=== PATIENT | male | born 1950 | race Caucasian/White ===

== ENCOUNTER 2024-11-28 13:27 | Inpatient (IN) | payer MEDICARE, SELFPAY ==
--- NOTE | ~2024-11-28 | CT_ITS ---
EXAMINATION: CT abdomen pelvis w con DATE: 11/28/2024 17:17 INDICATION: Inguinal hernia TECHNIQUE: Computed tomography (CT) of the abdomen and pelvis was performed with 100 mL Omnipaque-350 intravenous contrast. Automated exposure control and iterative reconstruction technique were employe d. The dose-length product was 493.86 mGy-cm. COMPARISON: None FINDINGS: Mild discoid atelectasis/scarring at the lingula. Heart size is normal. No pericardial or pleural eff usion. Small sliding-type hiatal hernia. Mild focal hepatic steatosis ligamentum teres. Gallbladder, spleen, pancreas and bilateral adrenal glands are normal. Bilateral renal cysts with single subcentim eter cyst at the lower pole the left kidney and several larger cysts at the right kidney the largest a 6.7 cm parapelvic cyst. The cyst. Exert mass effect upon the right renal pelvis with persistent mil d right hydronephrosis at the upper pole which is unchanged since MRI dated 12/21/15. The cecum, chavez l appendix and terminal ileum extends into a large right inguinal hernia. 3.5 cm diameter orifice to the hernia. There is edematous wall thickening of the cecum along with edema at the herniated mesente clay fat. Contrast enhanced arteries are seen extending into the hernia. There is however compression of the draining vein which appears relatively opacified compared with the remainder of the mesenteric veins suggesting secondary venous congestion if not kathleen ischemia. There is also a small bowel alba sition point at the entrance to the hernia with pseudo feces within a short segment of mildly dilated small bowel which measures up to 3.6 cm maximal diameter and with decompression of the more distal t erminal ileum. No dilation of the majority the more proximal small bowel suggesting this is either lo w-grade or intermittent. There are few diverticula along the sigmoid colon without adjacent from trac e stranding to suggest diverticular colitis. Small left inguinal hernia containing very small segment of nonobstructed proximal sigmoid colon without evident associated marrow or mesenteric edema. Bladd er is normal. Prostatomegaly. No free intraperitoneal gas or fluid. No pathologically enlarged abdomi nal or pelvic lymphadenopathy. Mild lumbar and lower thoracic spondylosis. IMPRESSION: 1. Large right inguinal hernia containing the cecum, terminal ileum and normal appendix. Edematous wa ll thickening of the cecum and edema of the herniated mesenteric fat along with decreased enhancement of the draining mesenteric vein suggest secondary venous congestion due to compression of the draini ng vein. The feeding arteries along with the cecal mucosa remain enhancing argue against kathleen ischem ia. 2. Mild dilation the short segment of the immediately more proximal ileum suggesting low-grade, inter mittent or early obstruction. 3. Small left inguinal hernia containing short segment of sigmoid colon without evident obstruction o r edematous changes. 4. Large right parapelvic cyst which results in chronic mild hydronephrosis at the upper pole calyces of the right kidney. Reviewed, dictated and finalized at location A. IMPRESSION: 1. Large right inguinal hernia containing the cecum, terminal ileum and normal appendix. Edematous wall thickening of the cecum and edema of the herniated mes enteric fat along with decreased enhancement of the draining mesenteric vein darling ggest secondary venous congestion due to compression of the draining vein. The feeding arteries along with the cecal mucosa remain enhancing argue against fra nk ischemia. 2. Mild dilation the short segment of the immediately more proximal ileum sugge sting low-grade, intermittent or early obstruction. 3. Small left inguinal hernia containing short segment of sigmoid colon without evident obstruction or edematous changes. 4. Large right parapelvic cyst which results in chronic mild hydronephrosis at the upper pole calyces of the right kidney.
[2024-11-28 13:31] VITALS: BP 161/85; PULSE 86; RESP 18; TEMP 37.1; O2SAT 96
--- OUTSIDE RECORDS SUMMARY | 2024-11-28 13:37 | XMS_ITS | Clinical Summary ---
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
--- OUTSIDE RECORDS SUMMARY | 2024-11-28 13:38 | XMS_ITS | Clinical Summary ---
Author Organization [facility] Address [address] [place] [address] Care Team Providers Care Perinatal Technician Name Role Phone Michael Cespedes MD Primary Care Provider [phone] Source Comments [facility],non-owned Affiliates and Associated Physician Practices is amultiple site organization consisting of ambulatory clinics and hospital sitesin [place], [place], [place] and [place]. This disclosure is being madepursuant to the Care Everywhere program and may not contain all information available regarding this patient. Last updated 18.[facility] Immunizations Immunization Administration Dates Next Due INFLUENZA VACCINE, HIGH-DOSE , QUADR. (FLUZONE HIGH-DOSE QUADRIVALENT; 65Y+), 0.7 ML (HD-IIV4) 02/24/2016 Pneumococcal Pcv13 Conj 01/26/2016 TDAP (7yrs+) 01/26/2016 ZOSTER VACCINE, LIVE 01/26/2016 Social History Tobacco Use Types Packs/Day Years Used Date Smoking Tobacco: Never Assessed Sex and Gender Information Value Date Recorded Sex Assigned at Not on file Legal Sex Male 11:24 AM CDT Gender Identity Not on file Sexual Orientation Not on file Plan of Treatment Health Maintenance Due Date Last Done Comments COLOGUARD (AGES 45-75) - COL ON CA SCREENING 1951 COLON MONITORING 1951 COLONOSCOPY - COLON CA SCREENING 1951 CT COLONOGRAPHY - COLON CA SCREENING 1950 Colorectal Cancer Screening 1950 FIT - COLON CA SCREENING 1950 FLEX SIG - COLON CA SCREENING 1951 LIPID TESTING 1950 HEPATITIS C SCREENING 01/11/1969 ZOSTER VACCINE (2 of 3) 03/22/2016 01/26/2016 PNEUMOCOCCAL VACCINE 50+ (2 of 2 - PCV20 or PCV21) 01/25/2017 01/26/2016 COVID-19 VACCINE (1 - 2023-2 5 season) 2024 DEPRESSION SCREENING 05/08/2024 INFLUENZA VACCINE (#1) 2025 02/24/2016 Respiratory Syncytial Virus (RSV) Vaccine Pt: or over 60 yrs (1 - 1-dose 75+ series) 2026 DTAP/TDAP/TD VACCINES (2 - T d or Tdap) 01/25/2026 01/26/2016 HEPATITIS B VACCINE Aged Out No longe r eligible based on patient's age to complete this topic HIB VACCINE Aged Out No longer eligi ble based on patient's age to complete this topic HPV VACCINE Aged Out No longer eligi ble based on patient's age to complete this topic MENINGOCOCCAL (Group B) VACC INE SHARED DECISION-MAKING Aged Out No longer eligibl e based on patient's age to complete this topic MENINGOCOCCAL GROUPS A/C/Y/W VACCINE Aged Out No longer eligible b ased on patient's age to complete this topic Insurance MEDICARE [facility] MEDICARE Care Teams Perinatal Technician Relationship Specialty Start Date End Date Michael Cespedes MD [address] [facility] [address] [place] [id number] PCP - General Internal Medicine 01/26/16
--- NOTE | 2024-11-28 15:00 | PC.NURSE ---
Patient up pacing in waiting room-reporting increase in pain
--- NOTE | 2024-11-28 15:22 | ED.ABDPAIN ---
HPI - Abdominal Pain General Chief Complaint: Urogenital-Male Stated Complaint: Right side groin hernia pain/protrusion Time Seen by Provider: 11/28/24 15:23 Focused HPI: This is a 74 year old male that presents to the ER for hernia that he is unable to reduce. It is in his right groin. He has had it for years. Usually he is able to reduce it, but since this morning he has not been able to get it back pain. GENERAL: Well-appearing, well-nourished, and in no acute distress. HEAD: Normocephalic, atraumatic. CHEST: Clear to auscultation. ?No respiratory distress. HEART: Regular rate and rhythm.? NEURO: ?Alert and oriented x3. Patient screened in triage and initial orders placed.? ?Additional care and disposition to be based upon?diagnostic testing and treatment. Related Data Allergies Allergy/AdvReac Type Severity Reaction Status Date / Time No Known Allergies Allergy Unverified 11/28/24 13:28 [facility] Family History Family History (Updated 01/12/16 @ 09:10 by DOCTOR UNKNOWN) Sibling Patient's sister is in good health Family history of Alzheimer's disease Mother Family history of cardiovascular disease Father Family history of Alzheimer's disease Social History Social History Smoking status: Current every day smoker Alcohol intake: never Course Vital Signs Vital signs: Vital Signs Temperature 98.7 F 11/28/24 13:31 Pulse Rate 86 11/28/24 13:31 Respiratory Rate 18 11/28/24 13:31 Blood Pressure 161/85 H 11/28/24 13:31 Pulse Oximetry 96 11/28/24 13:31 Oxygen Delivery Room Air 11/28/24 13:31 Temperature 98.7 F 11/28/24 13:31 Pulse Rate 86 11/28/24 13:31 Respiratory Rate 18 11/28/24 13:31 Blood Pressure 161/85 H 11/28/24 13:31 Pulse Oximetry 96 11/28/24 13:31 Oxygen Delivery Room Air 11/28/24 13:31 Discharge Plan Discharge Patient Language: Faroese Follow-up/Referrals: PHYSICIAN,CRYSTAL SLICER [Primary Care Provider] -
--- NOTE | 2024-11-28 15:57 | ED_ITS ---
HPI - Male Genitourinary General Chief complaint: Urogenital-Male Stated complaint: Right side groin hernia pain/protrusion Time Seen by Provider: 11/28/24 15:23 History of Present Illness HPI Narrative: Pt has history of left inguinal hernia which he says intermittently pops out but he can usually push it back in but today it went into scrotum and unable to reduce. Pt complains of pain and tenderness in the area but does not want pain meds now. Related Data Allergies Allergy/AdvReac Type Severity Reaction Status Date / Time No Known Allergies Allergy Verified 11/28/24 15:50 Review of Systems 2 Review of Systems: All systems reviewed & are unremarkable except as noted in HPI and below PMFSH Family History Family History (Updated 01/12/16 @ 09:10 by DOCTOR UNKNOWN) Sibling Patient's sister is in good health Family history of Alzheimer's disease Mother Family history of cardiovascular disease Father Family history of Alzheimer's disease Social History Social History Smoking status: Current every day smoker Alcohol intake: never Exam 2 Const: General: healthy appearing and no acute distress Nutritional Appearance: well nourished Limitations: no limitations Resp: Effort & Inspection: normal respiratory effort Auscultation: clear to auscultation bilaterally Cardio: Rate: regular rate Rhythm: regular rhythm GI: GI Palp: Yes Soft to palpation Other: large right sided inguinal hernia extending down into scrotum inguina area firm and tender. smaller area of fullnes left inguinal region not into scrotum : Scrotum: scrotal swelling on the left Back/Spine/Pelvis: Back: no CVA tenderness Skin: General skin exam: normal color Rashes: no rashes Wounds: no wounds Neuro: General: patient oriented x3, moves all extremities, no meningeal signs and no focal motor deficits Speech: normal speech Extrem: General: normal to inspection and no clubbing, cyanosis or edema Psych: Mental Status: mental status grossly normal Affect: normal affect Attitude: cooperative Course Vital Signs Vital signs: Vital Signs Temperature 98.7 F 11/28/24 13:31 Pulse Rate 86 11/28/24 13:31 Respiratory Rate 18 11/28/24 13:31 Blood Pressure 161/85 H 11/28/24 13:31 Pulse Oximetry 96 11/28/24 13:31 Oxygen Delivery Room Air 11/28/24 13:31 Temperature 98.7 F 11/28/24 13:31 Pulse Rate 86 11/28/24 13:31 Respiratory Rate 18 11/28/24 13:31 Blood Pressure 161/85 H 11/28/24 13:31 Pulse Oximetry 96 11/28/24 13:31 Oxygen Delivery Room Air 11/28/24 13:31 MDM - Male Genitourinary MDM Narrative Medical decision making narrative: Pt presents with large right sided inguinal hernia into scrotum. Pt says he can usually reduce but doesn't know if it usually goes into scrotum. not something im comfortable trying to reduce. Will get labs and CT to make sherrell not strangulated. and discuss with surgery. pt has cecum terminal ileum and appendix in large right inguinal hernia with venous congestion but not obvious ischemia. also patial or early bowel obstruction. 10.[address] Steiner and says to admit and he will see in morning. discussed with Estefania Jacobson and agrees to admit. Lab Data 11/28/24 15:53 11/28/24 15:53 Labs: Lab Results 11/28/24 11/28/24 Range/Units 15:53 16:35 WBC 10.6 H (4.5-10.0) K/mm3 RBC 4.68 (4.6-6.20) M/mm3 Hgb 14.0 (14.0-18.0) g/dL Hct 41.5 L (42.0-52.0) % MCV 88.7 (80-100) fl MCH 29.9 (26-34) pg MCHC 33.7 (32-36) g/dl RDW 14.0 (11.5-14.5) % Plt Count 248 (150-375) k/mm3 MPV 9.3 (7.4-10.4) fl Immature Gran % (Auto) 0.6 H (0-0.5) % Neut % (Auto) 82.8 H (45.5-73.1) % Lymph % (Auto) 9.8 L (18.3-44.2) % [place] % (Auto) 6.2 (2.6-8.5) % Eos % (Auto) 0.1 (0-4.4) % Baso % (Auto) 0.5 (0.2-1.2) % Lymph # (Auto) 1.04 (0.9-3.2) K/mm3 [place] # (Auto) 0.7 H (0.1-0.6) K/mm3 Eos # (Auto) 0.0 (0-0.3) K/mm3 Baso # (Auto) 0.1 (0.0-0.1) K/mm3 Abs Immat Gran (auto) 0.06 H (0.00-0.031) K/mm3 Absolute Neuts (auto) 8.8 H (1.3-6.7) K/mm3 Absolute Nucleated RBC 0.000 (0.0-0.012) K/mm3 Nucleated RBC % 0.0 (0.0-0.2) % Sodium 134 L (137-145) mmol/L Potassium 4.4 (3.4-5.0) mmol/L Chloride 102 (98-107) mmol/L Carbon Dioxide 24 (22-30) mmol/L Anion Gap 8 (4-12) mmol/L BUN 22 H (9-20) mg/dL Creatinine 1.16 (0.7-1.3) mg/dL Estim Creat Clear Calc 55 ml/min Estimated GFR > 60 (59 - ) Glucose 108 (65-110) mg/dL Calcium 9.4 (8.4-10.2) mg/dL Total Bilirubin 0.7 (0.2-1.3) mg/dL AST 35 (17-59) U/L ALT 22 (6-50) U/L Alkaline Phosphatase 107 (38-126) U/L Total Protein 8.1 (6.3-8.2) g/dL Albumin 4.5 (3.5-5.1) g/dL Lipase 56 (23-300) U/L Urine Color Yellow (Yellow) Urine Appearance Clear (Clear) Urine pH 6.0 (5.0-9.0) Ur Specific [place] 1.020 (1.001-1.035) Urine Protein 3+ H (Negative) mg/dL Urine Glucose (UA) Negative (Negative) mg/dL Urine Ketones Trace H (Negative) mg/dL Ur Blood (Man) Negative (Negative) Urine Nitrate Negative (Negative) Urine Bilirubin Negative (Negative) Urine Urobilinogen 1.0 (<2.0) mg/dL Leukocyte Esterase Rfl Trace H (Negative) ERIC/UL Urine RBC 0-2 (0-2) /hpf Urine WBC 0-5 (0-3) /hpf Ur Squamous Epith Cells None seen (Few) /hpf Urine Bacteria None seen /hpf Urine Casts 3-5 Discharge Plan Discharge Clinical Impression: Inguinal hernia, Bowel obstruction Patient Disposition: Still a Patient Condition: Stable Patient Language: Bermudian Follow-up/Referrals: PHYSICIAN,SPECIAL INSPECTOR [Primary Care Provider] -
[2024-11-28 15:59] LABS: Hematocrit 41.5 % (42.0-52.0); Hemoglobin 14.0 g/dL (14.0-18.0); Immature Granulocyte Percent A 0.6 % (0-0.5); Lymphocytes Absolute Auto 1.04 K/mm3 (0.9-3.2); Mean Corpuscular HGB Conc 33.7 g/dl (32-36); Mean Corpuscular Hemoglobin 29.9 pg (26-34); Mean Corpuscular Volume 88.7 fl (80-100); Nucleated Red Blood Cells Absolute Auto 0.000 K/mm3 (0.0-0.012); Nucleated Red Blood Cells Perc 0.0 % (0.0-0.2); Platelet Count Result 248 k/mm3 (150-375); Red Blood Count 4.68 M/mm3 (4.6-6.20); White Blood Count 10.6 K/mm3 (4.5-10.0)
[2024-11-28 16:31] LABS: Alanine Aminotransferase 22 U/L (6-50); Albumin Level 4.5 g/dL (3.5-5.1); Alkaline Phosphatase 107 U/L (38-126); Anion Gap 8 mmol/L (4-12); Aspartate Amino Transferase 35 U/L (17-59); Bilirubin,Total 0.7 mg/dL (0.2-1.3); Blood Urea Nitrogen 22 mg/dL (9-20); Calcium 9.4 mg/dL (8.4-10.2); Carbon Dioxide 24 mmol/L (22-30); Chloride 102 mmol/L (98-107); Estimated CRCL calculation 55 ml/min; Estimated Glomerular Filt Rate > 60; Glucose 108 mg/dL (65-110); Lipase 56 U/L (23-300); Potassium 4.4 mmol/L (3.4-5.0); Sodium 134 mmol/L (137-145); Total Protein 8.1 g/dL (6.3-8.2)
--- OUTSIDE RECORDS SUMMARY | 2024-11-28 16:32 | XMS_ITS | Clinical Summary ---
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
--- OUTSIDE RECORDS SUMMARY | 2024-11-28 16:32 | XMS_ITS | Clinical Summary ---
Author Organization [facility] Address [address] [place] [address] Care Team Providers Care Ranger Aide Name Role Phone Michael Cespedes MD Primary Care Provider Source Comments [facility],non-owned Affiliates and Associated Physician Practices is amultiple site organization consisting of ambulatory clinics and hospital sitesin [place], [place], [place] and [place]. This disclosure is being madepursuant to the Care Everywhere program and may not contain all information available regarding this patient. Last updated 18.[facility] Immunizations Immunization Administration Dates Next Due INFLUENZA [...] age to complete this topic Insurance MEDICARE [facility] MEDICARE Care Teams Ranger Aide Relationship Specialty Start Date End Date Michael Cespedes MD [address] [facility] [address] [place] [id number] PCP - General Internal Medicine 01/26/16
[2024-11-28 16:45] LABS: Glucose Urine UA Negative (Negative); Leukocyte Esterase Ur Trace LEU/UL (Negative); Nitrate Urine Negative (Negative); Specific Grav Ur 1.020 (1.001-1.035)
[2024-11-28 16:47] LABS: Add Urine Microscopic? YES; Appearance Urine Clear (Clear)
[2024-11-28] MEDS: MORPHINE SULFATE (*CRX) 4 MG/ML INJ 2 MG IV PUSH (16:53)
[2024-11-28] MEDS: ONDANSETRON INJ 4 MG/2 ML VIAL IV PUSH (16:53)
[2024-11-28 18:43] VITALS: BP 153/67; PULSE 67; RESP 20; O2SAT 96
[2024-11-28 19:34] VITALS: BMI 25.0
--- NOTE | 2024-11-28 20:46 | P.HP_ITS ---
H&P: HPI History of Present Illness Date/Time: 11/28/24 20:46 Chief Complaint: Painful inguinal hernia Narrative: 74-year-old male with chronic right-sided inguinal hernia who presents with non reducible hernia and pain . He usually can reduce it. Reports tobacco abuse but no other medical history. Lives at home with his . No nausea, vomiting, diarrhea, other abdominal pain. No fever. Presents to [facility] ER on 11/28/2024 for the above symptoms. He reports he had a bowel movement in last had food without issue in the morning. WBC 10.6, hemoglobin 14.0, platelets 248, sodium 134, BUN 22, serum creatinine 1.16. CT abdomen pelvis with contrast performed: 1. Large right inguinal hernia containing the cecum, terminal ileum and normal appendix. Edematous wall thickening of the cecum and edema of the herniated mesenteric fat along with decreased enhancement of the draining mesenteric vein suggest secondary venous congestion due to compression of the draining vein. The feeding arteries along with the cecal mucosa remain enhancing argue against kathleen ischemia. 2. Mild dilation the short segment of the immediately more proximal ileum suggesting low-grade, intermittent or early obstruction. 3. Small left inguinal hernia containing short segment of sigmoid colon without evident obstruction or edematous changes. 4. Large right parapelvic cyst which results in chronic mild hydronephrosis at the upper pole calyces of the right kidney. General surgery consulted from the ER. Patient given morphine 2 mg IV x1, Zofran 4 mg IV x1. Afterwards, patient reports greatly reduced pain after morphine. He rest comfortably in the bed. Review of Systems Review of Systems: All systems reviewed & are unremarkable except as noted in HPI and below (HPI) [facility] Family History Family History (Updated 01/12/16 @ 09:10 by DOCTOR UNKNOWN) Sibling Patient's sister is in good health Family history of Alzheimer's disease Mother Family history of cardiovascular disease Father Family history of Alzheimer's disease Social History Social History Smoking status: Current every day smoker Alcohol intake: never Meds Home Medications and Allergies Allergies Allergy/AdvReac Type Severity Reaction Status Date / Time No Known Allergies Allergy Verified 11/28/24 15:50 Vital Signs Vital Signs - 24 hr 11/28/24 13:31 11/28/24 18:43 Temperature 98.7 F Pulse Rate 86 67 Respiratory Rate 18 20 Blood Pressure 161/85 H 153/67 H Pulse Oximetry 96 96 Oxygen Delivery Room Air Exam Const: General: comfortable and no acute distress Other: A&O x3 HENMT: Mouth: Yes moist mucous membranes Eyes: Pupils: Equal, round and reactive pupils present Neck: Neck: supple Resp: Effort & Inspection: normal respiratory effort Auscultation: clear to auscultation bilaterally Cardio: Rate: regular rate Rhythm: regular rhythm Heart sounds: no gallops, no murmurs and no rubs GI: Inspection: non-distended GI Palp: Yes Soft to palpation and No Tenderness to palpation present (GI) Auscultation: normal bowel sounds : General: Yes bladder normal to palpation Other: Enlarged right inguinal area and scrotal sac. Mild tenderness to deep palpation. Neuro: Motor exam (neuro): 5/5 motor strength present throughout Extrem: General: no edema H&P: Results Labs Labs: Short CBC 11/28/24 Range/Units 15:53 WBC 10.6 H (4.5-10.0) K/mm3 Hgb 14.0 (14.0-18.0) g/dL Hct 41.5 L (42.0-52.0) % Plt Count 248 (150-375) k/mm3 BMP 11/28/24 15:53 Sodium 134 L Potassium 4.4 Chloride 102 Carbon Dioxide 24 BUN 22 H Creatinine 1.16 Glucose 108 Calcium 9.4 Liver Function 11/28/24 Range/Units 15:53 Total Bilirubin 0.7 (0.2-1.3) mg/dL AST 35 (17-59) U/L ALT 22 (6-50) U/L Alkaline Phosphatase 107 (38-126) U/L Albumin 4.5 (3.5-5.1) g/dL Urine 11/28/24 Range/Units 16:35 Urine Color Yellow (Yellow) Urine Appearance Clear (Clear) Urine pH 6.0 (5.0-9.0) Ur Specific [place] 1.020 (1.001-1.035) Urine Protein 3+ H (Negative) mg/dL Urine Glucose (UA) Negative (Negative) mg/dL Assessment and Plan Assessment and plan (1) Inguinal hernia: Code(s): K40.90 - Unilateral inguinal hernia, without obstruction or gangrene, not specified as recurrent Status: Acute Plan 74-year-old male with chronic right-sided inguinal hernia who presents with non reducible hernia and pain . He usually can reduce it. Reports tobacco abuse but no other medical history. Lives at home with his . No nausea, vomiting, diarrhea, other abdominal pain. No fever. Presents to [facility] ER on 11/28/2024 for the above symptoms. He reports he had a bowel movement in last had food without issue in the morning. WBC 10.6, hemoglobin 14.0, platelets 248, sodium 134, BUN 22, serum creatinine 1.16. CT abdomen pelvis with contrast performed: 1. Large right inguinal hernia containing the cecum, terminal ileum and normal appendix. Edematous wall thickening of the cecum and edema of the herniated mesenteric fat along with decreased enhancement of the draining mesenteric vein suggest secondary venous congestion due to compression of the draining vein. The feeding arteries along with the cecal mucosa remain enhancing argue against kathleen ischemia. 2. Mild dilation the short segment of the immediately more proximal ileum suggesting low-grade, intermittent or early obstruction. 3. Small left inguinal hernia containing short segment of sigmoid colon without evident obstruction or edematous changes. 4. Large right parapelvic cyst which results in chronic mild hydronephrosis at the upper pole calyces of the right kidney. General surgery consulted from the ER. Patient given morphine 2 mg IV x1, Zofran 4 mg IV x1. Afterwards, patient reports greatly reduced pain after morphine. He rest comfortably in the bed. ----- NPO. Normal saline at 100 cc/hour. Morphine p.r.n.. Patient declines nicotine patch/gum. Continue to monitor pain and abdominal/genitourinary exam. General surgery consulted. Patient would like to be full code. SCDs. Hospitalist [facility] Advance Care Plan I have confirmed that the patient's Advanced Care Plan is present, code status is documented, or surrogate decision maker is listed in patient medical record.: Yes Medication Reconciliation I have utilized all available resources to obtain, update and review the patients current medications (includes all prescriptions, OTC, herbals, cannabis, and nutritional supplements).: Yes
--- NOTE | 2024-11-28 20:49 | ADMGEN ---
This patient, Marlo Flanagan, was admitted to [facility] Surg Room 301-01. Patient/family oriented to hospital policies and general routines including ID bracelet, bed and alarms, visiting hours, pain management, procedures, bathroom and other care routines, personal items, smoking policy, room service/diet, and visiting hours. Information on how to activate the Rapid Response Team has been discussed. Patient/Family are encouraged to report perceived risks to care and to ask questions if they do not understand what they are told or what they should do.
[2024-11-28 21:54] VITALS: BP 175/77; PULSE 62; RESP 18; TEMP 36.2; O2SAT 93
[2024-11-28] MEDS: SODIUM CHLORIDE 0.9% IV 1,000 ML 100 ML IV CONT (22:00)
[2024-11-28] MEDS: MORPHINE SULFATE (*CRX) 2 MG/ML INJ IV PUSH (22:30)
[2024-11-29] VITALS (15 sets, daily range): BP systolic 156–183; BP diastolic 58–97; PULSE 58–73; RESP 11–20; TEMP 35.6–37.2; O2SAT 94–100
--- NOTE | 2024-11-29 00:11 | PC.NURSE ---
called Dr. Steiner and let him know Pt. had worsening testicular swelling and pain. PT. is now on bedrest and can have ice packs for the swelling.
[2024-11-29] MEDS: MORPHINE SULFATE (*CRX) 2 MG/ML INJ IV PUSH ×3 (03:12→10:57)
[2024-11-29 06:41] LABS: Hematocrit 41.7 % (42.0-52.0); Hemoglobin 13.8 g/dL (14.0-18.0); Immature Granulocyte Percent A 0.6 % (0-0.5); Lymphocytes Absolute Auto 1.02 K/mm3 (0.9-3.2); Mean Corpuscular HGB Conc 33.1 g/dl (32-36); Mean Corpuscular Hemoglobin 30.1 pg (26-34); Mean Corpuscular Volume 90.8 fl (80-100); Nucleated Red Blood Cells Absolute Auto 0.000 K/mm3 (0.0-0.012); Nucleated Red Blood Cells Perc 0.0 % (0.0-0.2); Platelet Count Result 217 k/mm3 (150-375); Red Blood Count 4.59 M/mm3 (4.6-6.20); White Blood Count 8.6 K/mm3 (4.5-10.0)
[2024-11-29 06:55] LABS: INR 1.0; Prothrombin Time 13.6 Seconds (11.1-14.7)
[2024-11-29 07:10] LABS: Alanine Aminotransferase 20 U/L (6-50); Albumin Level 4.0 g/dL (3.5-5.1); Alkaline Phosphatase 106 U/L (38-126); Anion Gap 8 mmol/L (4-12); Aspartate Amino Transferase 37 U/L (17-59); Bilirubin,Total 1.0 mg/dL (0.2-1.3); Blood Urea Nitrogen 21 mg/dL (9-20); Calcium 9.0 mg/dL (8.4-10.2); Carbon Dioxide 25 mmol/L (22-30); Chloride 101 mmol/L (98-107); Estimated CRCL calculation 59 ml/min; Estimated Glomerular Filt Rate > 60; Glucose 91 mg/dL (65-110); Magnesium 2.0 mg/dL (1.6-2.3); Potassium 4.1 mmol/L (3.4-5.0); Sodium 134 mmol/L (137-145); Total Protein 7.2 g/dL (6.3-8.2)
--- NOTE | 2024-11-29 08:04 | P.CONGS_ITS ---
Assessment and Plan Assessment and plan (1) Incarcerated right inguinal hernia: Code(s): K40.30 - Unilateral inguinal hernia, with obstruction, without gangrene, not specified as recurrent Status: Acute Assessment and Plan: * I reviewed the CT and discussed the findings with the patient. I was unable to reduce the hernia at the bedside and patient was uncomfortable with applying pressure in this region. He has evidence of an incarcerated right inguinal hernia containing bowel. I discussed surgery in detail with patient and potential findings at the time of surgery including ischemic or necrotic bowel which would necessitate a bowel resection. I have recommended laparoscopic incarcerated right inguinal hernia repair with mesh, da [place] assisted, possible open, possible bowel resection. I discussed the procedure, risks, benefits, and alternatives. Questions were answered. History of Present Illness Consult details Consult date: 11/29/24 Reason for consult: other (Incarcerated right inguinal hernia) Requesting physician: Lina Vail III, DO Narrative: this is a 74-year-old man who I am asked to see for incarcerated right inguinal hernia. The patient states that he has known he had a hernia in this location for about 30-40 years. It was initially small and caused no symptoms but over time it has become larger and occasionally was causing some pain. He has had times where it has been protruding and somewhat difficult to reduce but he was able to eventually reduce it. Yesterday morning he began experiencing a painful bulge that was unable to be reduced. He went into the emergency department after still continuing to have symptoms. In the emergency department last night a CT was performed which showed evidence of an incarcerated right inguinal hernia containing small bowel and cecum. There were some mild inflammatory stranding signs around the incarcerated contents but no signs of strangulation. He was then admitted for further treatment. He currently is still having pain in the area and it still will not reduce. He is not passing any flatus. He denies any nausea or vomiting. Review of Systems 2 Review of Systems: All systems reviewed & are unremarkable except as noted in HPI and below Eyes: Eyes: Denies change in vision ENT: Denies hearing loss, Denies neck pain and Denies sore throat Cardiovascular: Cardiovascular: Denies chest pain and Denies dyspnea Respiratory: Respiratory: Denies cough, Denies dyspnea and Denies wheezing Gastrointestinal: Gastrointestinal: Reports as per HPI Genitourinary: Genitourinary: Denies hematuria and Denies dysuria Musculoskeletal: Musculoskeletal: Denies arthralgias, Denies joint swelling and Denies neck pain Allergic/Immunologic: Allergic/Immunologic: Denies wheezing PMFSH Past Medical History Medical History (Updated 11/29/24 @ 12:00 by Seven Steiner DO) No pertinent past medical history Family History Family History Sibling Patient's sister is in good health Family history of Alzheimer's disease Mother Family history of cardiovascular disease Father Family history of Alzheimer's disease Social History Social History Smoking packs per day: 0.5 Smoking cigarettes per day: 10.0 Smoking status: Current every day smoker Tobacco type: cigarettes Alcohol intake: former Substance use: current Substance use type: does not use Do You Feel Safe in your Home?: Yes Lack of Transportation: No Lack of Food: Never True Current Housing: I Have Housing Concerned About Future Housing: No Difficulty Paying Gas/Electric Bills: No Difficulty Paying for Meds: No Currently Unemployed: No Education: Trade/Vocational Certificate Difficulty w/ Childcare or Family Care: No Spiritual care concerns: No Meds Home Medications and Allergies Home Medications ?Medication ?Instructions ?Recorded ?Confirmed ?Type docusate sodium 100 mg capsule 100 mg PO PRN 11/28/24 11/28/24 History Allergies Allergy/AdvReac Type Severity Reaction Status Date / Time No Known Allergies Allergy Verified 11/28/24 15:50 Vital Signs Vital Signs - 24 hr 11/28/24 13:31 11/28/24 18:43 11/28/24 21:54 Temperature 98.7 F 97.2 F L Pulse Rate 86 67 62 Respiratory Rate 18 20 18 Blood Pressure 161/85 H 153/67 H 175/77 H Pulse Oximetry 96 96 93 Oxygen Delivery Room Air 11/29/24 06:00 Temperature 97.9 F Pulse Rate 58 L Respiratory Rate 20 Blood Pressure 173/67 H Pulse Oximetry 94 Oxygen Delivery Exam 2 Const: General: alert; No acute distress Orientation/consciousness: patient oriented x3 Limitations: no limitations HENMT: Head: normocephalic and atraumatic Ears: hearing grossly normal bilaterally Face/Nose/Sinus: Normal external nose present and Normal nares present Mouth: Yes Normal oral and palatal mucosa present and Yes moist mucous membranes Eyes: General: appearance normal, both eyes and all related structures C onjunctivae: conjunctivae normal Sclera: sclerae normal Pupils: Equal, round and reactive pupils present EOM: EOMs intact bilaterally Neck: Neck: normal visual inspection, full ROM, no lymphadenopathy, supple and no JVD Lymphatic: no lymphadenopathy noted Chest: Chest palpation & inspection: normal inspection of the chest Resp: Effort & Inspection: normal respiratory effort and able to speak in complete sentences Auscultation: clear to auscultation bilaterally P ercussion: percussion normal Cardio: Jugular venous distension: no JVD Rate: regular rate Rhythm: r egular rhythm Heart sounds: S1 normal heart sound present and S2 normal heart sound present Peripheral pulses: Peripheral pulses 2+ throughout GI: Inspection: normal to inspection GI Palp: Yes Soft to palpation, No Tenderness to palpation present (GI) and No Guarding due to palpation present (GI) Auscultation: normal bowel sounds : General: Yes no CVA tenderness Scrotum: inguinal hernia on the right ( incarcerated her right inguinal hernia containing bowel, soft, tender to palpation) Back/Spine/Pelvis: Back: no CVA tenderness Skin: General skin exam: normal color and dry skin Neuro: General: patient oriented x3, gait normal, moves all extremities, no focal motor deficits and CN's II-XI intact bilaterally Cranial nerves: Yes Equal, round and reactive pupils present Speech: normal speech Extrem: General: normal to inspection and capillary refill normal Results Labs 11/29/24 05:38 11/29/24 05:38 Labs: Abnormal lab results 11/28/24 11/28/24 11/29/24 Range/Units 15:53 16:35 05:38 WBC 10.6 H (4.5-10.0) K/mm3 RBC 4.59 L (4.6-6.20) M/mm3 Hgb 13.8 L (14.0-18.0) g/dL Hct 41.5 L 41.7 L (42.0-52.0) % Immature Gran % (Auto) 0.6 H 0.6 H (0-0.5) % Neut % (Auto) 82.8 H 77.0 H (45.5-73.1) % Lymph % (Auto) 9.8 L 11.9 L (18.3-44.2) % [place] % (Auto) 8.9 H (2.6-8.5) % [place] # (Auto) 0.7 H 0.8 H (0.1-0.6) K/mm3 Abs Immat Gran (auto) 0.06 H 0.05 H (0.00-0.031) K/mm3 Absolute Neuts (auto) 8.8 H (1.3-6.7) K/mm3 Sodium 134 L 134 L (137-145) mmol/L BUN 22 H 21 H (9-20) mg/dL Urine Protein 3+ H (Negative) mg/dL Urine Ketones Trace H (Negative) mg/dL Leukocyte Esterase Rfl Trace H (Negative) ERIC/UL Diabetes panel 11/28/24 11/29/24 Range/Units 15:53 05:38 Sodium 134 L 134 L (137-145) mmol/L Potassium 4.4 4.1 (3.4-5.0) mmol/L Chloride 102 101 (98-107) mmol/L Carbon Dioxide 24 25 (22-30) mmol/L BUN 22 H 21 H (9-20) mg/dL Creatinine 1.16 1.09 (0.7-1.3) mg/dL Glucose 108 91 (65-110) mg/dL Calcium 9.4 9.0 (8.4-10.2) mg/dL AST 35 37 (17-59) U/L ALT 22 20 (6-50) U/L Alkaline Phosphatase 107 106 (38-126) U/L Total Protein 8.1 7.2 (6.3-8.2) g/dL Albumin 4.5 4.0 (3.5-5.1) g/dL Calcium panel 11/28/24 11/29/24 Range/Units 15:53 05:38 Calcium 9.4 9.0 (8.4-10.2) mg/dL Albumin 4.5 4.0 (3.5-5.1) g/dL Pituitary panel 11/28/24 11/29/24 Range/Units 15:53 05:38 Sodium 134 L 134 L (137-145) mmol/L Potassium 4.4 4.1 (3.4-5.0) mmol/L Chloride 102 101 (98-107) mmol/L Carbon Dioxide 24 25 (22-30) mmol/L BUN 22 H 21 H (9-20) mg/dL Creatinine 1.16 1.09 (0.7-1.3) mg/dL Glucose 108 91 (65-110) mg/dL Calcium 9.4 9.0 (8.4-10.2) mg/dL Adrenal panel 11/28/24 11/29/24 Range/Units 15:53 05:38 Sodium 134 L 134 L (137-145) mmol/L Potassium 4.4 4.1 (3.4-5.0) mmol/L Chloride 102 101 (98-107) mmol/L Carbon Dioxide 24 25 (22-30) mmol/L BUN 22 H 21 H (9-20) mg/dL Creatinine 1.16 1.09 (0.7-1.3) mg/dL Glucose 108 91 (65-110) mg/dL Calcium 9.4 9.0 (8.4-10.2) mg/dL Total Bilirubin 0.7 1.0 (0.2-1.3) mg/dL AST 35 37 (17-59) U/L ALT 22 20 (6-50) U/L Alkaline Phosphatase 107 106 (38-126) U/L Total Protein 8.1 7.2 (6.3-8.2) g/dL Albumin 4.5 4.0 (3.5-5.1) g/dL All other labs normal. Imaging Additional studies: ITS Impressions Abdomen/Pelvis CT 11/28/24 17:25 IMPRESSION: 1. Large right inguinal hernia containing the cecum, terminal ileum and normal appendix. Edematous wall thickening of the cecum and edema of the herniated mesenteric fat along with decreased enhancement of the draining mesenteric vein suggest secondary venous congestion due to compression of the draining vein. The feeding arteries along with the cecal mucosa remain enhancing argue against kathleen ischemia. 2. Mild dilation the short segment of the immediately more proximal ileum suggesting low-grade, intermittent or early obstruction. 3. Small left inguinal hernia containing short segment of sigmoid colon without evident obstruction or edematous changes. 4. Large right parapelvic cyst which results in chronic mild hydronephrosis at the upper pole calyces of the right kidney.
--- NOTE | 2024-11-29 12:02 | WPDHPUPDATE1 ---
History and Physical Update Update Date/Time: 11/29/24 12:02 History and Physical has been reviewed, including an updated exam of the patient. There are NO changes in the patient's condition. Risks, benefits, and alternatives have been discussed and questions answered. Patient agrees to proceed with procedure.
--- NOTE | 2024-11-29 13:48 | WPDANESEPPF ---
Anes - Initial Pre Proc Eval Procedure: Operation Date: 11/29/24 14:30 Proposed Procedures p Robotic Repair Incarcerated Right Inguinal Hernia, Possible Bowel Resection - Seven Steiner DO Date/Time: 11/29/24 13:48 Surgeon: Everardo Guzman MD Pre Op Diagnosis: inguinal hernia/bowel obstruction Patient Data Age: 74 Gender: M Height: 1.83 m Weight: 83.6 kg Last Vital Signs Temp 99 F 11/29/24 13:30 Pulse 65 11/29/24 13:30 Resp 16 11/29/24 13:30 BP 180/72 H 11/29/24 13:30 Pulse Ox 96 11/29/24 13:30 O2 Del Method Room Air 11/29/24 13:30 Allergies Allergy/AdvReac Type Severity Reaction Status Date / Time No Known Allergies Allergy Verified 11/29/24 13:50 Home Medications ?Medication ?Instructions ?Recorded ?Confirmed ?Type docusate sodium 100 mg capsule 100 mg PO PRN 11/28/24 11/28/24 History Laboratory Tests 11/28/24 11/28/24 11/29/24 15:53 16:35 05:38 WBC 10.6 H K/mm3 8.6 K/mm3 (4.5-10.0) (4.5-10.0) RBC 4.68 M/mm3 4.59 L M/mm3 (4.6-6.20) (4.6-6.20) Hgb 14.0 g/dL 13.8 L g/dL (14.0-18.0) (14.0-18.0) Hct 41.5 L % 41.7 L % (42.0-52.0) (42.0-52.0) MCV 88.7 fl 90.8 fl (80-100) (80-100) MCH 29.9 pg 30.1 pg (26-34) (26-34) MCHC 33.7 g/dl 33.1 g/dl (32-36) (32-36) RDW 14.0 % 13.8 % (11.5-14.5) (11.5-14.5) Plt Count 248 k/mm3 217 k/mm3 (150-375) (150-375) MPV 9.3 fl 10.0 fl (7.4-10.4) (7.4-10.4) Immature Gran % (Auto) 0.6 H % 0.6 H % (0-0.5) (0-0.5) Neut % (Auto) 82.8 H % 77.0 H % (45.5-73.1) (45.5-73.1) Lymph % (Auto) 9.8 L % 11.9 L % (18.3-44.2) (18.3-44.2) [place] % (Auto) 6.2 % 8.9 H % (2.6-8.5) (2.6-8.5) Eos % (Auto) 0.1 % 1.1 % (0-4.4) (0-4.4) Baso % (Auto) 0.5 % 0.5 % (0.2-1.2) (0.2-1.2) Lymph # (Auto) 1.04 K/mm3 1.02 K/mm3 (0.9-3.2) (0.9-3.2) [place] # (Auto) 0.7 H K/mm3 0.8 H K/mm3 (0.1-0.6) (0.1-0.6) Eos # (Auto) 0.0 K/mm3 0.1 K/mm3 (0-0.3) (0-0.3) Baso # (Auto) 0.1 K/mm3 0.0 K/mm3 (0.0-0.1) (0.0-0.1) Abs Immat Gran (auto) 0.06 H K/mm3 0.05 H K/mm3 (0.00-0.031) (0.00-0.031) Absolute Neuts (auto) 8.8 H K/mm3 6.6 K/mm3 (1.3-6.7) (1.3-6.7) Absolute Nucleated RBC 0.000 K/mm3 0.000 K/mm3 (0.0-0.012) (0.0-0.012) Nucleated RBC % 0.0 % 0.0 % (0.0-0.2) (0.0-0.2) PT 13.6 Seconds (11.1-14.7) INR 1.0 Sodium 134 L mmol/L 134 L mmol/L (137-145) (137-145) Potassium 4.4 mmol/L 4.1 mmol/L (3.4-5.0) (3.4-5.0) Chloride 102 mmol/L 101 mmol/L (98-107) (98-107) Carbon Dioxide 24 mmol/L 25 mmol/L (22-30) (22-30) Anion Gap 8 mmol/L 8 mmol/L (4-12) (4-12) BUN 22 H mg/dL 21 H mg/dL (9-20) (9-20) Creatinine 1.16 mg/dL 1.09 mg/dL (0.7-1.3) (0.7-1.3) Estim Creat Clear Calc 55 ml/min 59 ml/min Estimated GFR > 60 > 60 (59 - ) (59 - ) Glucose 108 mg/dL 91 mg/dL (65-110) (65-110) Calcium 9.4 mg/dL 9.0 mg/dL (8.4-10.2) (8.4-10.2) Magnesium 2.0 mg/dL (1.6-2.3) Total Bilirubin 0.7 mg/dL 1.0 mg/dL (0.2-1.3) (0.2-1.3) AST 35 U/L 37 U/L (17-59) (17-59) ALT 22 U/L 20 U/L (6-50) (6-50) Alkaline Phosphatase 107 U/L 106 U/L (38-126) (38-126) Total Protein 8.1 g/dL 7.2 g/dL (6.3-8.2) (6.3-8.2) Albumin 4.5 g/dL 4.0 g/dL (3.5-5.1) (3.5-5.1) Lipase 56 U/L (23-300) Urine Color Yellow (Yellow) Urine Appearance Clear (Clear) Urine pH 6.0 (5.0-9.0) Ur Specific [place] 1.020 (1.001-1.035) Urine Protein 3+ H mg/dL (Negative) Urine Glucose (UA) Negative mg/dL (Negative) Urine Ketones Trace H mg/dL (Negative) Ur Blood (Man) Negative (Negative) Urine Nitrate Negative (Negative) Urine Bilirubin Negative (Negative) Urine Urobilinogen 1.0 mg/dL (<2.0) Leukocyte Esterase Rfl Trace H ERIC/UL (Negative) Urine RBC 0-2 /hpf (0-2) Urine WBC 0-5 /hpf (0-3) Ur Squamous Epith Cells None seen /hpf (Few) Urine Bacteria None seen /hpf Urine Casts 3-5 Patient hx anesthesia problems: none Family hx anesthesia problems: none Results Review: All pre-operative results and documents have been reviewed as part of the pre-operative evaluation. [facility] Past Medical History Medical History (Updated 11/29/24 @ 12:00 by Seven Steiner DO) No pertinent past medical history Family History Family History Sibling Patient's sister is in good health Family history of Alzheimer's disease Mother Family history of cardiovascular disease Father Family history of Alzheimer's disease Social History Social History Smoking packs per day: 0.5 Smoking cigarettes per day: 10.0 Smoking status: Current every day smoker Tobacco type: cigarettes Alcohol intake: former Substance use: current Substance use type: does not use Do You Feel Safe in your Home?: Yes Lack of Transportation: No Lack of Food: Never True Current Housing: I Have Housing Concerned About Future Housing: No Difficulty Paying Gas/Electric Bills: No Difficulty Paying for Meds: No Currently Unemployed: No Education: Trade/Vocational Certificate Difficulty w/ Childcare or Family Care: No Spiritual care concerns: No Anes - Eval Final PreProcedure Day of Procedure 11/29/24 13:48 Patient weight: normal Heart: regular rate and rhythm Lungs: clear to auscultation Airway: Mallampati scale class III Neurological: alert and oriented Last oral intake: >/= 8 hours ASA classification: II Emergent: no Anesthetic plan: proceed Anesthesia type and monitoring: general ETT and standard monitoring Results Review: All pre-operative results and documents have been reviewed as part of the pre-operative evaluation. Informed Consent: The patient's anesthetic plan and its attendant risks and benefits were discussed with the patient/family/POA. Questions were solicited and answers provided to the satisfaction of the patient/family/POA.
[2024-11-29] MEDS: LACTATED RINGERS 1,000 ML 30 ML IV CONT ×2 (13:49→17:17)
--- NOTE | 2024-11-29 13:52 | ECG_ITS ---
Test Date: 2024-11-29 14:07:25 Measurements Intervals [place] Rate: 66 P: 66 ME: 184 QRS: 56 QRSD: 104 T: 74 QT: 402 QTc: 421 Interpretive Statements SINUS RHYTHM NONSPECIFIC T-WAVE ABNORMALITY No previous ECG available for comparison Electronically Signed On 11-30-2024 18:40:20 CDT by Jr Nance M.D.
[2024-11-29] MEDS: ceFAZolin 2 GM in SODIUM CHLORIDE 0.9% IV 50 ML 100 ML IVPB (14:13)
[2024-11-29] MEDS: BUPIVACAINE/EPINEPHRINE 0.5% 50 ML VIAL 30 ML INFILTRATE (14:19)
--- NOTE | 2024-11-29 14:30 | P.PNIM_ITS ---
Progress Note: A&P Assessment and Plan (1) Inguinal hernia: Code(s): K40.90 - Unilateral inguinal hernia, without obstruction or gangrene, not specified as recurrent Status: Acute Plan 74-year-old male with chronic right-sided inguinal hernia who presents with non reducible hernia and pain . He usually can reduce it. Reports tobacco abuse but no other medical history. Lives at home with his . No nausea, vomiting, diarrhea, other abdominal pain. No fever. Presents to [facility] on 11/28/2024 for the above symptoms. He reports he had a bowel movement in last had food without issue in the morning. WBC 10.6, hemoglobin 14.0, platelets 248, sodium 134, BUN 22, serum creatinine 1.16. CT abdomen pelvis with contrast performed: 1. Large right inguinal hernia containing the cecum, terminal ileum and normal appendix. Edematous wall thickening of the cecum and edema of the herniated mesenteric fat along with decreased enhancement of the draining mesenteric vein suggest secondary venous congestion due to compression of the draining vein. The feeding arteries along with the cecal mucosa remain enhancing argue against kathleen ischemia. 2. Mild dilation the short segment of the immediately more proximal ileum suggesting low-grade, intermittent or early obstruction. 3. Small left inguinal hernia containing short segment of sigmoid colon without evident obstruction or edematous changes. 4. Large right parapelvic cyst which results in chronic mild hydronephrosis at the upper pole calyces of the right kidney. General surgery consulted from the ER. Patient given morphine 2 mg IV x1, Zofran 4 mg IV x1. Afterwards, patient reports greatly reduced pain after morphine. He rest comfortably in the bed. ----- NPO. Normal saline at 100 cc/hour. Morphine p.r.n.. Patient declines nicotine patch/gum. Continue to monitor pain and abdominal/genitourinary exam. General surgery consulted. patient stats pain is much better compared to when he arrived, patient is seen by general surgery service and planning to take the patient to OR this afternoon. patient if present in the room and gave updates. will monitor, follow and further recommendation to follow. Patient would like to be full code. SCDs. Subjective Date/time seen: 11/29/24 14:30 Interval history: Painful inguinal hernia Narrative: 74-year-old male with chronic right-sided inguinal hernia who presents with non reducible hernia and pain . He usually can reduce it. Reports tobacco abuse but no other medical history. Lives at home with his . No nausea, vomiting, diarrhea, other abdominal pain. No fever. Presents to [facility] on 11/28/2024 for the above symptoms. He reports he had a bowel movement in last had food without issue in the morning. WBC 10.6, hemoglobin 14.0, platelets 248, sodium 134, BUN 22, serum creatinine 1.16. CT abdomen pelvis with contrast performed: 1. Large right inguinal hernia containing the cecum, terminal ileum and normal appendix. Edematous wall thickening of the cecum and edema of the herniated mesenteric fat along with decreased enhancement of the draining mesenteric vein suggest secondary venous congestion due to compression of the draining vein. The feeding arteries along with the cecal mucosa remain enhancing argue against kathleen ischemia. 2. Mild dilation the short segment of the immediately more proximal ileum suggesting low-grade, intermittent or early obstruction. 3. Small left inguinal hernia containing short segment of sigmoid colon without evident obstruction or edematous changes. 4. Large right parapelvic cyst which results in chronic mild hydronephrosis at the upper pole calyces of the right kidney. General surgery consulted from the ER. Patient given morphine 2 mg IV x1, Zofran 4 mg IV x1. Afterwards, patient reports greatly reduced pain after morphine. He rest comfortably in the bed. patient stats pain is much better compared to when he arrived, patient is seen by general surgery service and planning to take the patient to OR this afternoon. patient if present in the room and gave updates. will monitor, follow and further recommendation to follow. Review of Systems Review of Systems: All systems reviewed & are unremarkable except as noted in HPI and below (HPI) Exam Narrative: Patient is comfortable, NAD HEENT: eyes are clear and none icteric LUNGS:CTA HEART: RR S1S2 ABD: BS+, Soft and nontender Lower extremities: no edema SKIN: nonjaundiced Neuro: grossly intact. Objective Data Vital Signs Vital Signs: Vital Signs - 24 hr 11/28/24 18:43 11/28/24 21:54 11/29/24 06:00 Temperature 36.2 C L 36.6 C Pulse Rate 67 62 58 L Respiratory Rate 20 18 20 Blood Pressure 153/67 H 175/77 H 173/67 H Pulse Oximetry 96 93 94 Oxygen Delivery 11/29/24 08:00 11/29/24 08:00 11/29/24 13:30 Temperature 37.2 C Pulse Rate 65 Respiratory Rate 16 Blood Pressure 180/72 H Pulse Oximetry 94 94 96 Oxygen Delivery Room Air Room Air Room Air Intake/Output Intake/Output: Intake & Output 11/26/24 11/27/24 11/28/24 11/29/24 23:59 23:59 23:59 23:59 Intake Total 200 Output Total 450 600 Balance -450 -400 Meds/Results Medications: Active Medications Generic Name Dose Route Start Last Admin Trade Name Freq PRN Reason Stop Dose Admin Fentanyl Citrate 25 mcg 11/29/24 13:48 Fentanyl Citrate Inj (*Crx) 100 Mcg/2 Ml Vial IV PUSH Q2M PRN Pain Sodium Chloride 1,000 mls @ 100 mls/hr 11/28/24 20:55 11/28/24 22:00 Normal Saline Iv IV CONT 100 mls/hr .Q10H ARIADNA Administration Lactated Ringer's 1,000 mls @ 30 mls/hr 11/29/24 13:50 11/29/24 13:49 Lr - Lactated Ringers Iv IV CONT 30 mls/hr .Q24H ARIADNA Administration Lactated Ringer's 1,000 mls @ 30 mls/hr 11/29/24 13:50 Lr - Lactated Ringers Iv IV CONT .Q24H ARIADNA Morphine Sulfate 2 mg 11/28/24 18:12 11/29/24 10:57 Morphine Sulfate (*Crx) 2 Mg/Ml Inj IV PUSH 2 mg Q2H PRN Administration Pain Rated 7-10 Ondansetron HCl 4 mg 11/29/24 13:48 Ondansetron Inj 4 Mg/2 Ml Vial IV PUSH ONCE PRN Nausea Radiology Results: ITS Impressions Abdomen/Pelvis CT 11/28/24 17:25 IMPRESSION: 1. Large right inguinal hernia containing the cecum, terminal ileum and normal appendix. Edematous wall thickening of the cecum and edema of the herniated mesenteric fat along with decreased enhancement of the draining mesenteric vein suggest secondary venous congestion due to compression of the draining vein. The feeding arteries along with the cecal mucosa remain enhancing argue against kathleen ischemia. 2. Mild dilation the short segment of the immediately more proximal ileum suggesting low-grade, intermittent or early obstruction. 3. Small left inguinal hernia containing short segment of sigmoid colon without evident obstruction or edematous changes. 4. Large right parapelvic cyst which results in chronic mild hydronephrosis at the upper pole calyces of the right kidney. Labs Labs: Laboratory Results - last 24 hr 11/28/24 11/28/24 11/29/24 15:53 16:35 05:38 WBC 10.6 H 8.6 RBC 4.68 4.59 L Hgb 14.0 13.8 L Hct 41.5 L 41.7 L MCV 88.7 90.8 MCH 29.9 30.1 MCHC 33.7 33.1 RDW 14.0 13.8 Plt Count 248 217 MPV 9.3 10.0 Immature Gran % (Auto) 0.6 H 0.6 H Neut % (Auto) 82.8 H 77.0 H Lymph % (Auto) 9.8 L 11.9 L [place] % (Auto) 6.2 8.9 H Eos % (Auto) 0.1 1.1 Baso % (Auto) 0.5 0.5 Lymph # (Auto) 1.04 1.02 [place] # (Auto) 0.7 H 0.8 H Eos # (Auto) 0.0 0.1 Baso # (Auto) 0.1 0.0 Abs Immat Gran (auto) 0.06 H 0.05 H Absolute Neuts (auto) 8.8 H 6.6 Absolute Nucleated RBC 0.000 0.000 Nucleated RBC % 0.0 0.0 PT 13.6 INR 1.0 Sodium 134 L 134 L Potassium 4.4 4.1 Chloride 102 101 Carbon Dioxide 24 25 Anion Gap 8 8 BUN 22 H 21 H Creatinine 1.16 1.09 Estim Creat Clear Calc 55 59 Estimated GFR > 60 > 60 Glucose 108 91 Calcium 9.4 9.0 Magnesium 2.0 Total Bilirubin 0.7 1.0 AST 35 37 ALT 22 20 Alkaline Phosphatase 107 106 Total Protein 8.1 7.2 Albumin 4.5 4.0 Lipase 56 Urine Color Yellow Urine Appearance Clear Urine pH 6.0 Ur Specific [place] 1.020 Urine Protein 3+ H Urine Glucose (UA) Negative Urine Ketones Trace H Ur Blood (Man) Negative Urine Nitrate Negative Urine Bilirubin Negative Urine Urobilinogen 1.0 Leukocyte Esterase Rfl Trace H Urine RBC 0-2 Urine WBC 0-5 Ur Squamous Epith Cells None seen Urine Bacteria None seen Urine Casts 3-5
--- NOTE | 2024-11-29 16:14 | S_PTH ---
PATIENT: Marlo Flanagan LOC: [id number] U#:[id number] AGE/SX: 74/M ROOM: 301 RE11/28/[address]: Everardo Guzman MD : [id number] BED: 01 DIS: 12/01/2024 SPEC #: [id number] RECD: 12/02/24 07:43 STATUS: LEVI REIzzy #: [id number] SHILOH: 11/29/24 16:[address]: Seven Steienr DEPT: [facility] Surgical RECD BY: Hipolito Cooney ENTERED: 12/02/24 07:43 SP TYPE: Surgical OTHR DR: Everardo Guzman MD BODY LINE FINISHER PHYSICIAN Martha Garcia DO Tissues: A - Hernia Sac Procedures: Gross and Microscopic Level 2 Hematoxylin and Eosin Stain
--- NOTE | 2024-11-29 17:14 | P.OP_ITS ---
Procedure Note - Detailed Date of Procedure 11/29/24 Pre-op Diagnosis Incarcerated right inguinal hernia Post-op Diagnosis Same (Incarcerated indirect right inguinal hernia) Procedure Performed 1. Attempted her robotic assisted laparoscopic incarcerated right inguinal hernia repair 2. Open incarcerated right inguinal hernia repair with mesh Surgeon Seven Steiner, Anesthesia General and Local (0.5% bupivacaine with epi) Indications This is a 74-year-old man who presented to the emergency department on 0 11/28/2024 with right groin pain and a large right inguinal hernia that was not reducible. He has a known history of a right inguinal hernia but he had not sought any treatment for this in the past. It was typically not causing him any severe pain but occasionally would bother him. He was usually able to reduce the hernia. Yesterday morning the hernia became firm and tender. He was unable to push it back in. After this persisted throughout most of the day he then decided to come to the emergency department for evaluation. CT showed evidence of an incarcerated right inguinal hernia containing the terminal ileum, appendix, and cecum. Discussions were made with the patient about treatment options and decision was made to proceed with laparoscopic incarcerated right inguinal hernia repair with mesh, da Merline assisted, possible open, possible bowel resection. Findings Attempted robotic assisted laparoscopic incarcerated right inguinal hernia repair was performed. The hernia was very tight and I was unable to reduce the bowel with careful external pressure along with gentle retraction internally. I also tried making a small incision at the superior edge of the deep inguinal ring but this still did not open the hernia wide enough to allow the incarcerated contents to reduce. I then chose to convert to an open incarcerated right inguinal hernia repair. Once I was able to incise the external oblique aponeuroses down to the external ring and then isolate the hernia sac from the cord contents was able to get the herniated contents to reduce. I carefully inspected the herniated contents and there did not appear to be any evidence of ischemia or necrosis. After the bowel had been reduced I then brought it back up through the hernia defect 1 final time and it all appeared healthy and viable. The hernia sac was excised and sent to the lab for pathology. I then placed a ultra pro hernia system large mesh to repair the defect. Description of Procedure Procedure as well as risks, benefits, and alternatives were discussed with the patient. Written consent was obtained and placed in chart prior to procedure. Patient was brought back to surgical suite. He was placed supine on operating table. Time-out was done to confirm patient and procedure. He was then intubat ed by the anesthesia department. I attempted gentle pressure on the hernia defect once he was intubated but the hernia still appeared incarcerated. His abdomen and inguinal region was then prepped and draped in sterile fashion using chlorhexidine prep. An 8 mm incision was made in the right upper quadrant and an 8 mm Optiview trocar was advanced through the abdominal layers under direct visualization. Once inside the peritoneal cavity, carbon dioxide insufflation was used to create a pneumoperitoneum. The camera was inserted the abdomen was inspected. No immediate abnormalities were identified. The patient was then placed in Trendelenburg position. An 8 mm incision was made in the right upper quadrant 8 mm trocar was inserted under direct visualization. Another 8 mm incision was made in the suprapubic midline and an 8 mm trocar was inserted under direct visualization. The robotic arms were brought up to the bedside and secured to the ports. The robotic camera and instruments were then inserted and then I moved over to the robotic console I carefully inspected the abdominal cavity. I then used Cadiere graspers to gently retract on the herniated contents in the right inguinal region. There appeared to be ileum and cecum going up into the hernia defect. This appeared to be a very tight defect and I was unable to manipulate the bowel out of the hernia sac. I also used robotic scissors with electrocautery to carefully try to incise the internal ring at the superior margin just lateral to the inferior epigastric vessels. This still did not appear to release the incarcerated contents. I also tried having the 1st quality assistant apply some manual pressure at the hernia defect and scrotum while gently retracting from the inside with the robotic graspers but there still was no significant improvement. At this point I did not want to risk tearing the bowel or causing any significant bleeding or compromise the blood supply, therefore I chose to convert to an open procedure. The robotic instruments and camera were removed. The robotic arms were disengaged from the ports and moved away from the patient's bedside. The pneumoperitoneum was released and the ports were removed. The patient was then partially flattened back out in bed but was still kept in about 5? Trendelenburg. 0.5% bupivacaine with epinephrine was infiltrated locally along the right inguinal region. A 10 cm incision was made using a 10 blade scalpel an oblique angle angling down towards the pubis and scrotum. Electrocautery was then used for hemostasis and for dissection through the subcutaneous tissue. The external oblique aponeurosis was identified and cleared down towards the external ring using electrocautery. Incision was then made on the external oblique aponeuroses using a 15 blade scalpel. Metzenbaum scissors were then used to cut the fascia down to the external inguinal ring. I then was able to isolate the hernia sac and cord contents and place a [place] drain around it. The hernia sac was then carefully dissected off of the cord contents using blunt dissection and electrocautery. Was then able to open the hernia sac and inspected the incarcerated contents. There was no evidence of perforation or necrosis. The herniated bowel was carefully reduced back down into the abdominal cavity. The hernia sac was then further dissected off of the cord contents all the way back to the deep inguinal ring. I then opened the hernia sac further using electrocautery and then carefully inspected will was previously incarcerated. Was able to lift the appendix up through the hernia defect then also carefully mobilized the cecum and terminal ileum back out through the hernia defect all of the bowel appeared healthy and viable. There was 1 area on the surface of the terminal ileum that had a small serosal injury measuring only about 2 mm wide. I chose to over-sew this with a 3-0 silk seromuscular imbricating suture. All of the bowel appeared healthy and viable. It was then reduced back down into the abdominal cavity. The hernia sac was then ligated close to the deep inguinal ring and then the hernia sac was closed using an 0 silk suture. I then cleared the space underneath the internal oblique muscle and rectus abdominus muscle to allow for wide enough space for mesh placement. I then chose a Ultrapro hernia system large mesh. This was placed with the inner mesh within the space under the internal oblique muscle. Laid the mesh out flat and angled towards the pubic tubercle. A cut was made on the anterior leaflet of the mesh to allow for the spermatic cord to lie in between the 2 leaflets. I then reapproximated the pelvic floor to close the hernia defect over the inner leaflet of the mesh using 2-0 Prolene simple interrupted sutures to the shelving edge of the inguinal ligament. I then secured the anterior leaflet of the mesh to the pubic tubercle and pelvic floor using 2-0 Prolene simple interrupted sutures. The inferior edge of the mesh was also secured to the inguinal ligament using 2-0 Prolene simple interrupted sutures. The mesh appeared to be laying flat within the space underneath the external oblique aponeurosis. The spermatic cord was then released back down into its normal position. The external oblique aponeurosis was then reapproximated over the mesh using 0 Vicryl running suture all the way to the level of the external ring. 0.5% bupivacaine with epinephrine was then infiltrated along the fascia. Noam's fascia was then reapproximated using 3-0 Vicryl simple interrupted sutures. The skin was then approximated using 4-0 Monocryl running subcuticular suture. The skin of the port sites was also reapproximated using 4-0 Monocryl subcuticular sutures. Exofin glue was then applied on top. The patient was then awakened from anesthesia, extubated, and transferred to recovery. Implants Ultra Pro hernia system large mesh Estimated Blood Loss 20 Urine Output 200 Pathology Yes (Hernia sac) Complications No immediate complications Condition Stable Disposition Floor [facility] Billing Surgery - Charge Forward: Surgery Billing
[2024-11-29] MEDS: fentaNYL CITRATE INJ (*CRX) 100 MCG/2 ML VIAL 25 MCG IV PUSH ×4 (17:48→18:04)
[2024-11-29] MEDS: LACTATED RINGERS 1,000 ML 100 ML IV CONT (18:45)
[2024-11-30] VITALS (7 sets, daily range): BP systolic 139–158; BP diastolic 52–87; PULSE 69–100; RESP 18–20; TEMP 35.9–37.1; O2SAT 92–99
[2024-11-30 06:06] LABS: Hematocrit 39.0 % (42.0-52.0); Hemoglobin 12.9 g/dL (14.0-18.0); Mean Corpuscular HGB Conc 33.1 g/dl (32-36); Mean Corpuscular Hemoglobin 30.2 pg (26-34); Mean Corpuscular Volume 91.3 fl (80-100); Platelet Count Result 196 k/mm3 (150-375); Red Blood Count 4.27 M/mm3 (4.6-6.20); White Blood Count 11.0 K/mm3 (4.5-10.0)
[2024-11-30 06:24] LABS: Anion Gap 5 mmol/L (4-12); Blood Urea Nitrogen 20 mg/dL (9-20); Calcium 8.3 mg/dL (8.4-10.2); Carbon Dioxide 27 mmol/L (22-30); Chloride 102 mmol/L (98-107); Estimated CRCL calculation 58 ml/min; Estimated Glomerular Filt Rate > 60; Glucose 105 mg/dL (65-110); Magnesium 1.8 mg/dL (1.6-2.3); Potassium 4.2 mmol/L (3.4-5.0); Sodium 134 mmol/L (137-145)
[2024-11-30] MEDS: ENOXAPARIN 40 MG/0.4 ML SYRINGE SUB-Q (08:56)
--- NOTE | 2024-11-30 13:12 | P.PNGS_ITS ---
Progress Note: A&P Assessment and Plan (1) Incarcerated right inguinal hernia: Code(s): K40.30 - Unilateral inguinal hernia, with obstruction, without gangrene, not specified as recurrent Status: Acute Assessment and Plan: * Continue full liquid diet today, can likely advance to regular diet tomorrow. * Increase activity. * Possibly home in the next 1-2 days. Subjective Subjective Date/Time Seen: 11/30/24 13:12 Interval history: Doing well on postop day 1. Tolerating clear liquids and advanced to full liquids for lunch. Passing a small amount of flatus, but no BM yet. No nausea or vomiting. Pain well controlled and able to get up and ambulate. Exam : Other: Incision healing well, no significant scrotal swelling. Incisions intact with glue. Objective Data Vital Signs Vital Signs: Vital Signs - 24 hr 11/29/24 13:30 11/29/24 17:17 11/29/24 17:22 Temperature 99 F 97.6 F Pulse Rate 65 61 Respiratory Rate 16 12 Blood Pressure 180/72 H 156/59 H Pulse Oximetry 96 100 100 Oxygen Delivery Room Air Simple Face Mask Simple Face Mask Oxygen Flow Rate 8 8 11/29/24 17:30 11/29/24 17:36 11/29/24 17:45 Temperature Pulse Rate 65 68 Respiratory Rate 11 L 12 Blood Pressure 168/66 H 182/97 H Pulse Oximetry 100 100 95 Oxygen Delivery Simple Face Mask Room Air Nasal Cannula Oxygen Flow Rate 8 4 11/29/24 18:00 11/29/24 18:15 11/29/24 18:21 Temperature Pulse Rate 70 66 73 Respiratory Rate 12 12 15 Blood Pressure 183/70 H 169/71 H 168/73 H Pulse Oximetry 97 98 98 Oxygen Delivery Nasal Cannula Nasal Cannula Nasal Cannula Oxygen Flow Rate 4 4 2 11/29/24 18:24 11/29/24 18:39 11/29/24 19:09 Temperature 96.1 F L 96.1 F L 97 F L Pulse Rate 71 62 67 Respiratory Rate 14 14 16 Blood Pressure 162/58 H 159/60 H 169/73 H Pulse Oximetry 95 95 94 Oxygen Delivery Oxygen Flow Rate 11/29/24 21:10 11/30/24 00:09 11/30/24 04:45 Temperature 96.9 F L 96.7 F L 97.8 F Pulse Rate 73 86 100 Respiratory Rate 16 18 20 Blood Pressure 166/67 H 154/67 H 140/87 Pulse Oximetry 96 92 97 Oxygen Delivery Oxygen Flow Rate 11/30/24 04:50 11/30/24 08:00 11/30/24 08:09 Temperature 98.5 F 98.6 F Pulse Rate 69 70 Respiratory Rate 20 18 Blood Pressure 141/52 H 139/55 L Pulse Oximetry 99 96 95 Oxygen Delivery Nasal Cannula Oxygen Flow Rate 2 11/30/24 10:38 Temperature Pulse Rate Respiratory Rate Blood Pressure Pulse Oximetry Oxygen Delivery Room Air Oxygen Flow Rate Intake/Output Intake/Output: Intake & Output 11/27/24 11/28/24 11/29/24 11/30/24 23:59 23:59 23:59 23:59 Intake Total 250 180 Output Total 450 1200 750 Balance -676 -119 -839 Meds/Results Medications: Active Medications Generic Name Dose Route Start Last Admin Trade Name Freq PRN Reason Stop Dose Admin Hydrocodone Bitart/Acetaminophen 1 tab 11/29/24 18:24 Hydrocodone/Acetaminophen (*Crx) 5-325 Mg Tablet PO Q4H PRN Pain Rated 4-6 Hydrocodone Bitart/Acetaminophen 1 tab 11/29/24 18:24 Hydrocodone/Acetaminophen (*Crx) 10-325 Mg Tablet PO Q4H PRN Pain Rated 7-10 Enoxaparin Sodium 40 mg 11/30/24 09:00 11/30/24 08:56 Enoxaparin 40 Mg/0.4 Ml Syringe SUB-Q 40 mg DAILY ARIADNA Administration Ibuprofen 800 mg in 200 mls @ 400 mls/hr 11/29/24 18:24 Caldolor 800 Mg/200 Ml IVPB Q6H PRN Breakthrough Pain Rated 1-3 or NPO Ibuprofen 600 mg 11/29/24 18:24 Ibuprofen 600 Mg Tablet PO Q6H PRN Pain Rated 1-3 Morphine Sulfate 2 mg 11/29/24 18:24 Morphine Sulfate (*Crx) 2 Mg/Ml Inj IV PUSH Q2H PRN Breakthrough Pain Rated 4-6 or NPO Morphine Sulfate 4 mg 11/29/24 18:24 Morphine Sulfate (*Crx) 4 Mg/Ml Inj IV PUSH Q2H PRN Breakthrough Pain Rated 7-10 or NPO Naloxone HCl 0.1 mg 11/29/24 18:24 Naloxone Hcl 0.4 Mg/Ml Vial IV PUSH Q2M PRN Opiate Reversal Ondansetron HCl 4 mg 11/29/24 18:24 Ondansetron Inj 4 Mg/2 Ml Vial IV PUSH Q4H PRN Nausea And Vomiting Radiology Results: ITS Impressions Abdomen/Pelvis CT 11/28/24 17:25 IMPRESSION: 1. Large right inguinal hernia containing the cecum, terminal ileum and normal appendix. Edematous wall thickening of the cecum and edema of the herniated mesenteric fat along with decreased enhancement of the draining mesenteric vein suggest secondary venous congestion due to compression of the draining vein. The feeding arteries along with the cecal mucosa remain enhancing argue against kathleen ischemia. 2. Mild dilation the short segment of the immediately more proximal ileum suggesting low-grade, intermittent or early obstruction. 3. Small left inguinal hernia containing short segment of sigmoid colon without evident obstruction or edematous changes. 4. Large right parapelvic cyst which results in chronic mild hydronephrosis at the upper pole calyces of the right kidney. Labs Labs: Laboratory Results - last 24 hr 11/30/24 05:30 WBC 11.0 H RBC 4.27 L Hgb 12.9 L Hct 39.0 L MCV 91.3 MCH 30.2 MCHC 33.1 RDW 13.7 Plt Count 196 MPV 9.3 Sodium 134 L Potassium 4.2 Chloride 102 Carbon Dioxide 27 Anion Gap 5 BUN 20 Creatinine 1.10 Estim Creat Clear Calc 58 Estimated GFR > 60 Glucose 105 Calcium 8.3 L Magnesium 1.8
--- NOTE | 2024-11-30 14:43 | PM.IMPN ---
Progress Note: A&P Assessment and Plan (1) Inguinal hernia: Code(s): K40.90 - Unilateral inguinal hernia, without obstruction or gangrene, not specified as recurrent Status: Acute Plan 74-year-old male with chronic right-sided inguinal hernia who presents with non reducible hernia and pain . He usually can reduce it. Reports tobacco abuse but no other medical history. Lives at home with his . No nausea, vomiting, diarrhea, other abdominal pain. No fever. Presents to [facility] on 11/28/2024 for the above symptoms. He reports he had a bowel movement in last had food without issue in the morning. WBC 10.6, hemoglobin 14.0, platelets 248, sodium 134, BUN 22, serum creatinine 1.16. CT abdomen pelvis with contrast performed: 1. Large right inguinal hernia containing the cecum, terminal ileum and normal appendix. Edematous wall thickening of the cecum and edema of the herniated mesenteric fat along with decreased enhancement of the draining mesenteric vein suggest secondary venous congestion due to compression of the draining vein. The feeding arteries along with the cecal mucosa remain enhancing argue against kathleen ischemia. 2. Mild dilation the short segment of the immediately more proximal ileum suggesting low-grade, intermittent or early obstruction. 3. Small left inguinal hernia containing short segment of sigmoid colon without evident obstruction or edematous changes. 4. Large right parapelvic cyst which results in chronic mild hydronephrosis at the upper pole calyces of the right kidney. General surgery consulted from the ER. Patient given morphine 2 mg IV x1, Zofran 4 mg IV x1. Afterwards, patient reports greatly reduced pain after morphine. He rest comfortably in the bed. ----- NPO. Normal saline at 100 cc/hour. Morphine p.r.n.. Patient declines nicotine patch/gum. Continue to monitor pain and abdominal/genitourinary exam. General surgery consulted. patient stats pain is much better compared to when he arrived, patient is seen by general surgery service and planning to take the patient to OR this afternoon. patient if present in the room and gave updates. will monitor, follow and further recommendation to follow. patient with incarcerated hernia s/p surgical repair, POD# 1, tolerating full liquid diet, and seen by his surgeon, will advance to regular diet tomorrow. will have PT/OT work with the patient, will plan. patient is present. Patient would like to be full code. SCDs. Subjective Date/time seen: 11/30/24 14:43 Interval history: Painful inguinal hernia Narrative: 74-year-old male with chronic right-sided inguinal hernia who presents with non reducible hernia and pain . He usually can reduce it. Reports tobacco abuse but no other medical history. Lives at home with his . No nausea, vomiting, diarrhea, other abdominal pain. No fever. Presents to [facility] [place] [facility] on 11/28/2024 for the above symptoms. He reports he had a bowel movement in last had food without issue in the morning. WBC 10.6, hemoglobin 14.0, platelets 248, sodium 134, BUN 22, serum creatinine 1.16. CT abdomen pelvis with contrast performed: 1. Large right inguinal hernia containing the cecum, terminal ileum and normal appendix. Edematous wall thickening of the cecum and edema of the herniated mesenteric fat along with decreased enhancement of the draining mesenteric vein suggest secondary venous congestion due to compression of the draining vein. The feeding arteries along with the cecal mucosa remain enhancing argue against kathleen ischemia. 2. Mild dilation the short segment of the immediately more proximal ileum suggesting low-grade, intermittent or early obstruction. 3. Small left inguinal hernia containing short segment of sigmoid colon without evident obstruction or edematous changes. 4. Large right parapelvic cyst which results in chronic mild hydronephrosis at the upper pole calyces of the right kidney. General surgery consulted from the ER. Patient given morphine 2 mg IV x1, Zofran 4 mg IV x1. Afterwards, patient reports greatly reduced pain after morphine. He rest comfortably in the bed. patient stats pain is much better compared to when he arrived, patient is seen by general surgery service and planning to take the patient to OR this afternoon. patient if present in the room and gave updates. will monitor, follow and further recommendation to follow. patient with incarcerated hernia s/p surgical repair, POD# 1, tolerating full liquid diet, and seen by his surgeon, will advance to regular diet tomorrow. will have PT/OT work with the patient, will plan. patient is present. Review of Systems Review of Systems: All systems reviewed & are unremarkable except as noted in HPI and below (HPI) Exam Narrative: Patient is comfortable, NAD HEENT: eyes are clear and none icteric LUNGS:CTA HEART: RR S1S2 ABD: BS+, Soft and nontender Lower extremities: no edema SKIN: nonjaundiced Neuro: grossly intact. Objective Data Vital Signs Vital Signs: Vital Signs - 24 hr 11/29/24 17:17 11/29/24 17:22 11/29/24 17:30 Temperature 36.4 C Pulse Rate 61 65 Respiratory Rate 12 11 L Blood Pressure 156/59 H 168/66 H Pulse Oximetry 100 100 100 Oxygen Delivery Simple Face Mask Simple Face Mask Simple Face Mask Oxygen Flow Rate 8 8 8 11/29/24 17:36 11/29/24 17:45 11/29/24 18:00 Temperature Pulse Rate 68 70 Respiratory Rate 12 12 Blood Pressure 182/97 H 183/70 H Pulse Oximetry 100 95 97 Oxygen Delivery Room Air Nasal Cannula Nasal Cannula Oxygen Flow Rate 4 4 11/29/24 18:15 11/29/24 18:21 11/29/24 18:24 Temperature 35.6 C L Pulse Rate 66 73 71 Respiratory Rate 12 15 14 Blood Pressure 169/71 H 168/73 H 162/58 H Pulse Oximetry 98 98 95 Oxygen Delivery Nasal Cannula Nasal Cannula Oxygen Flow Rate 4 2 11/29/24 18:39 11/29/24 19:09 11/29/24 21:10 Temperature 35.6 C L 36.1 C L 36.1 C L Pulse Rate 62 67 73 Respiratory Rate 14 16 16 Blood Pressure 159/60 H 169/73 H 166/67 H Pulse Oximetry 95 94 96 Oxygen Delivery Oxygen Flow Rate 11/30/24 00:09 11/30/24 04:45 11/30/24 04:50 Temperature 35.9 C L 36.6 C 36.9 C Pulse Rate 86 100 69 Respiratory Rate 18 20 20 Blood Pressure 154/67 H 140/87 141/52 H Pulse Oximetry 92 97 99 Oxygen Delivery Oxygen Flow Rate 11/30/24 08:00 11/30/24 08:09 11/30/24 10:38 Temperature 37.0 C Pulse Rate 70 Respiratory Rate 18 Blood Pressure 139/55 L Pulse Oximetry 96 95 Oxygen Delivery Nasal Cannula Room Air Oxygen Flow Rate 2 Intake/Output Intake/Output: Intake & Output 11/27/24 11/28/24 11/29/24 11/30/24 23:59 23:59 23:59 23:59 Intake Total 250 420 Output Total 450 1200 750 Balance -450 -950 -330 Meds/Results Medications: Active Medications Generic Name Dose Route Start Last Admin Trade Name Freq PRN Reason Stop Dose Admin Hydrocodone Bitart/Acetaminophen 1 tab 11/29/24 18:24 Hydrocodone/Acetaminophen (*Crx) 5-325 Mg Tablet PO Q4H PRN Pain Rated 4-6 Hydrocodone Bitart/Acetaminophen 1 tab 11/29/24 18:24 Hydrocodone/Acetaminophen (*Crx) 10-325 Mg Tablet PO Q4H PRN Pain Rated 7-10 Enoxaparin Sodium 40 mg 11/30/24 09:00 11/30/24 08:56 Enoxaparin 40 Mg/0.4 Ml Syringe SUB-Q 40 mg DAILY ARIADNA Administration Ibuprofen 800 mg in 200 mls @ 400 mls/hr 11/29/24 18:24 Caldolor 800 Mg/200 Ml IVPB Q6H PRN Breakthrough Pain Rated 1-3 or NPO Ibuprofen 600 mg 11/29/24 18:24 Ibuprofen 600 Mg Tablet PO Q6H PRN Pain Rated 1-3 Morphine Sulfate 2 mg 11/29/24 18:24 Morphine Sulfate (*Crx) 2 Mg/Ml Inj IV PUSH Q2H PRN Breakthrough Pain Rated 4-6 or NPO Morphine Sulfate 4 mg 11/29/24 18:24 Morphine Sulfate (*Crx) 4 Mg/Ml Inj IV PUSH Q2H PRN Breakthrough Pain Rated 7-10 or NPO Naloxone HCl 0.1 mg 11/29/24 18:24 Naloxone Hcl 0.4 Mg/Ml Vial IV PUSH Q2M PRN Opiate Reversal Ondansetron HCl 4 mg 11/29/24 18:24 Ondansetron Inj 4 Mg/2 Ml Vial IV PUSH Q4H PRN Nausea And Vomiting Radiology Results: ITS Impressions Abdomen/Pelvis CT 11/28/24 17:25 IMPRESSION: 1. Large right inguinal hernia containing the cecum, terminal ileum and normal appendix. Edematous wall thickening of the cecum and edema of the herniated mesenteric fat along with decreased enhancement of the draining mesenteric vein suggest secondary venous congestion due to compression of the draining vein. The feeding arteries along with the cecal mucosa remain enhancing argue against kathleen ischemia. 2. Mild dilation the short segment of the immediately more proximal ileum suggesting low-grade, intermittent or early obstruction. 3. Small left inguinal hernia containing short segment of sigmoid colon without evident obstruction or edematous changes. 4. Large right parapelvic cyst which results in chronic mild hydronephrosis at the upper pole calyces of the right kidney. Labs Labs: Laboratory Results - last 24 hr 11/30/24 05:30 WBC 11.0 H RBC 4.27 L Hgb 12.9 L Hct 39.0 L MCV 91.3 MCH 30.2 MCHC 33.1 RDW 13.7 Plt Count 196 MPV 9.3 Sodium 134 L Potassium 4.2 Chloride 102 Carbon Dioxide 27 Anion Gap 5 BUN 20 Creatinine 1.10 Estim Creat Clear Calc 58 Estimated GFR > 60 Glucose 105 Calcium 8.3 L Magnesium 1.8
[2024-12-01 04:45] VITALS: BP 184/72; PULSE 72; RESP 18; TEMP 36.4; O2SAT 94
[2024-12-01 06:15] LABS: Hematocrit 37.8 % (42.0-52.0); Hemoglobin 12.4 g/dL (14.0-18.0); Mean Corpuscular HGB Conc 32.8 g/dl (32-36); Mean Corpuscular Hemoglobin 29.8 pg (26-34); Mean Corpuscular Volume 90.9 fl (80-100); Platelet Count Result 198 k/mm3 (150-375); Red Blood Count 4.16 M/mm3 (4.6-6.20); White Blood Count 8.6 K/mm3 (4.5-10.0)
[2024-12-01 06:43] LABS: Anion Gap 1 mmol/L (4-12); Blood Urea Nitrogen 17 mg/dL (9-20); Calcium 8.4 mg/dL (8.4-10.2); Carbon Dioxide 27 mmol/L (22-30); Chloride 99 mmol/L (98-107); Estimated CRCL calculation 59 ml/min; Estimated Glomerular Filt Rate > 60; Glucose 92 mg/dL (65-110); Magnesium 1.7 mg/dL (1.6-2.3); Potassium 3.9 mmol/L (3.4-5.0); Sodium 127 mmol/L (137-145)
[2024-12-01] MEDS: ENOXAPARIN 40 MG/0.4 ML SYRINGE SUB-Q (08:10)
--- NOTE | 2024-12-01 12:17 | PM.IMPN ---
Progress Note: A&P Assessment and Plan (1) Inguinal hernia: Code(s): K40.90 - Unilateral inguinal hernia, without obstruction or gangrene, not specified as recurrent Status: Acute Plan 74-year-old male with chronic right-sided inguinal hernia who presents with non reducible hernia and pain . He usually can reduce it. Reports tobacco abuse but no other medical history. Lives at home with his . No nausea, vomiting, diarrhea, other abdominal pain. No fever. Presents to [place] [facility] on 11/28/2024 for the above symptoms. He reports he had a bowel movement in last had food without issue in the morning. WBC 10.6, hemoglobin 14.0, platelets 248, sodium 134, BUN 22, serum creatinine 1.16. CT abdomen pelvis with contrast performed: 1. Large right inguinal hernia containing the cecum, terminal ileum and normal appendix. Edematous wall thickening of the cecum and edema of the herniated mesenteric fat along with decreased enhancement of the draining mesenteric vein suggest secondary venous congestion due to compression of the draining vein. The feeding arteries along with the cecal mucosa remain enhancing argue against kathleen ischemia. 2. Mild dilation the short segment of the immediately more proximal ileum suggesting low-grade, intermittent or early obstruction. 3. Small left inguinal hernia containing short segment of sigmoid colon without evident obstruction or edematous changes. 4. Large right parapelvic cyst which results in chronic mild hydronephrosis at the upper pole calyces of the right kidney. General surgery consulted from the ER. Patient given morphine 2 mg IV x1, Zofran 4 mg IV x1. Afterwards, patient reports greatly reduced pain after morphine. He rest comfortably in the bed. ----- NPO. Normal saline at 100 cc/hour. Morphine p.r.n.. Patient declines nicotine patch/gum. Continue to monitor pain and abdominal/genitourinary exam. General surgery consulted. patient stats pain is much better compared to when he arrived, patient is seen by general surgery service and planning to take the patient to OR this afternoon. patient if present in the room and gave updates. will monitor, follow and further recommendation to follow. patient with incarcerated hernia s/p surgical repair, POD# 2, tolerating full liquid diet, passing gas, no BM yet, and will be seen by his surgeon, may advance to regular diet today . will have PT/OT work with the patient, will plan. patient is present. Patient would like to be full code. SCDs. Subjective Date/time seen: 12/01/24 12:17 Interval history: Painful inguinal hernia Narrative: 74-year-old male with chronic right-sided inguinal hernia who presents with non reducible hernia and pain . He usually can reduce it. Reports tobacco abuse but no other medical history. Lives at home with his . No nausea, vomiting, diarrhea, other abdominal pain. No fever. Presents to [place] ER on 11/28/2024 for the above symptoms. He reports he had a bowel movement in last had food without issue in the morning. WBC 10.6, hemoglobin 14.0, platelets 248, sodium 134, BUN 22, serum creatinine 1.16. CT abdomen pelvis with contrast performed: 1. Large right inguinal hernia containing the cecum, terminal ileum and normal appendix. Edematous wall thickening of the cecum and edema of the herniated mesenteric fat along with decreased enhancement of the draining mesenteric vein suggest secondary venous congestion due to compression of the draining vein. The feeding arteries along with the cecal mucosa remain enhancing argue against kathleen ischemia. 2. Mild dilation the short segment of the immediately more proximal ileum suggesting low-grade, intermittent or early obstruction. 3. Small left inguinal hernia containing short segment of sigmoid colon without evident obstruction or edematous changes. 4. Large right parapelvic cyst which results in chronic mild hydronephrosis at the upper pole calyces of the right kidney. General surgery consulted from the ER. Patient given morphine 2 mg IV x1, Zofran 4 mg IV x1. Afterwards, patient reports greatly reduced pain after morphine. He rest comfortably in the bed. patient stats pain is much better compared to when he arrived, patient is seen by general surgery service and planning to take the patient to OR this afternoon. patient if present in the room and gave updates. will monitor, follow and further recommendation to follow. patient with incarcerated hernia s/p surgical repair, POD# 2, tolerating full liquid diet, passing gas, no BM yet, and will be seen by his surgeon, may advance to regular diet today . will have PT/OT work with the patient, will plan. patient is present. Review of Systems Review of Systems: All systems reviewed & are unremarkable except as noted in HPI and below (HPI) Exam Narrative: Patient is comfortable, NAD HEENT: eyes are clear and none icteric LUNGS:CTA HEART: RR S1S2 ABD: BS+, Soft and nontender Lower extremities: no edema SKIN: nonjaundiced Neuro: grossly intact. Objective Data Vital Signs Vital Signs: Vital Signs - 24 hr 11/30/24 19:40 12/01/24 04:45 Temperature 37.1 C 36.4 C L Pulse Rate 69 72 Respiratory Rate 18 18 Blood Pressure 154/70 H 184/72 H Pulse Oximetry 94 94 Intake/Output Intake/Output: Intake & Output 11/28/24 11/29/24 11/30/24 12/01/24 23:59 23:59 23:59 23:59 Intake Total 250 1760 540 Output Total 450 1200 750 Balance -450 -950 1010 540 Meds/Results Medications: Active Medications Generic Name Dose Route Start Last Admin Trade Name Freq PRN Reason Stop Dose Admin Hydrocodone Bitart/Acetaminophen 1 tab 11/29/24 18:24 Hydrocodone/Acetaminophen (*Crx) 5-325 Mg Tablet PO Q4H PRN Pain Rated 4-6 Hydrocodone Bitart/Acetaminophen 1 tab 11/29/24 18:24 Hydrocodone/Acetaminophen (*Crx) 10-325 Mg Tablet PO Q4H PRN Pain Rated 7-10 Enoxaparin Sodium 40 mg 11/30/24 09:00 12/01/24 08:10 Enoxaparin 40 Mg/0.4 Ml Syringe SUB-Q 40 mg DAILY ARIADNA Administration Ibuprofen 800 mg in 200 mls @ 400 mls/hr 11/29/24 18:24 Caldolor 800 Mg/200 Ml IVPB Q6H PRN Breakthrough Pain Rated 1-3 or NPO Ibuprofen 600 mg 11/29/24 18:24 Ibuprofen 600 Mg Tablet PO Q6H PRN Pain Rated 1-3 Morphine Sulfate 2 mg 11/29/24 18:24 Morphine Sulfate (*Crx) 2 Mg/Ml Inj IV PUSH Q2H PRN Breakthrough Pain Rated 4-6 or NPO Morphine Sulfate 4 mg 11/29/24 18:24 Morphine Sulfate (*Crx) 4 Mg/Ml Inj IV PUSH Q2H PRN Breakthrough Pain Rated 7-10 or NPO Naloxone HCl 0.1 mg 11/29/24 18:24 Naloxone Hcl 0.4 Mg/Ml Vial IV PUSH Q2M PRN Opiate Reversal Ondansetron HCl 4 mg 11/29/24 18:24 Ondansetron Inj 4 Mg/2 Ml Vial IV PUSH Q4H PRN Nausea And Vomiting Radiology Results: ITS Impressions Abdomen/Pelvis CT 11/28/24 17:25 IMPRESSION: 1. Large right inguinal hernia containing the cecum, terminal ileum and normal appendix. Edematous wall thickening of the cecum and edema of the herniated mesenteric fat along with decreased enhancement of the draining mesenteric vein suggest secondary venous congestion due to compression of the draining vein. The feeding arteries along with the cecal mucosa remain enhancing argue against kathleen ischemia. 2. Mild dilation the short segment of the immediately more proximal ileum suggesting low-grade, intermittent or early obstruction. 3. Small left inguinal hernia containing short segment of sigmoid colon without evident obstruction or edematous changes. 4. Large right parapelvic cyst which results in chronic mild hydronephrosis at the upper pole calyces of the right kidney. Labs Labs: Laboratory Results - last 24 hr 12/01/24 05:49 WBC 8.6 RBC 4.16 L Hgb 12.4 L Hct 37.8 L MCV 90.9 MCH 29.8 MCHC 32.8 RDW 13.7 Plt Count 198 MPV 9.2 Sodium 127 L Potassium 3.9 Chloride 99 Carbon Dioxide 27 Anion Gap 1 L BUN 17 Creatinine 1.08 Estim Creat Clear Calc 59 Estimated GFR > 60 Glucose 92 Calcium 8.4 Magnesium 1.7
--- NOTE | 2024-12-01 12:31 | P.PNGS_ITS ---
Progress Note: A&P Assessment and Plan (1) Incarcerated right inguinal hernia: Code(s): K40.30 - Unilateral inguinal hernia, with obstruction, without gangrene, not specified as recurrent Status: Acute Assessment and Plan: * Advance to regular diet * Will give MiraLax today * OK to discharge from surgical standpoint. Discharge instructions discussed with patient. Subjective Subjective Date/Time Seen: 12/01/24 12:31 Interval history: Minimal pain. Hasn't taken any pain meds since surgery. No nausea/vomiting. Tolerating full liquids. Passing flatus but no BM yet. Exam : Other: Incision healing well, no significant scrotal swelling. Incisions intact with glue. Objective Data Vital Signs Vital Signs: Vital Signs - 24 hr 11/30/24 19:40 12/01/24 04:45 Temperature 98.7 F 97.5 F L Pulse Rate 69 72 Respiratory Rate 18 18 Blood Pressure 154/70 H 184/72 H Pulse Oximetry 94 94 Intake/Output Intake/Output: Intake & Output 11/28/24 11/29/24 11/30/24 12/01/24 23:59 23:59 23:59 23:59 Intake Total 250 1760 540 Output Total 450 1200 750 Balance -450 -950 1010 540 Meds/Results Medications: Active Medications Generic Name Dose Route Start Last Admin Trade Name Freq PRN Reason Stop Dose Admin Hydrocodone Bitart/Acetaminophen 1 tab 11/29/24 18:24 Hydrocodone/Acetaminophen (*Crx) 5-325 Mg Tablet PO Q4H PRN Pain Rated 4-6 Hydrocodone Bitart/Acetaminophen 1 tab 11/29/24 18:24 Hydrocodone/Acetaminophen (*Crx) 10-325 Mg Tablet PO Q4H PRN Pain Rated 7-10 Enoxaparin Sodium 40 mg 11/30/24 09:00 12/01/24 08:10 Enoxaparin 40 Mg/0.4 Ml Syringe SUB-Q 40 mg DAILY ARIADNA Administration Ibuprofen 800 mg in 200 mls @ 400 mls/hr 11/29/24 18:24 Caldolor 800 Mg/200 Ml IVPB Q6H PRN Breakthrough Pain Rated 1-3 or NPO Ibuprofen 600 mg 11/29/24 18:24 Ibuprofen 600 Mg Tablet PO Q6H PRN Pain Rated 1-3 Morphine Sulfate 2 mg 11/29/24 18:24 Morphine Sulfate (*Crx) 2 Mg/Ml Inj IV PUSH Q2H PRN Breakthrough Pain Rated 4-6 or NPO Morphine Sulfate 4 mg 11/29/24 18:24 Morphine Sulfate (*Crx) 4 Mg/Ml Inj IV PUSH Q2H PRN Breakthrough Pain Rated 7-10 or NPO Naloxone HCl 0.1 mg 11/29/24 18:24 Naloxone Hcl 0.4 Mg/Ml Vial IV PUSH Q2M PRN Opiate Reversal Ondansetron HCl 4 mg 11/29/24 18:24 Ondansetron Inj 4 Mg/2 Ml Vial IV PUSH Q4H PRN Nausea And Vomiting Radiology Results: ITS Impressions Abdomen/Pelvis CT 11/28/24 17:25 IMPRESSION: 1. Large right inguinal hernia containing the cecum, terminal ileum and normal appendix. Edematous wall thickening of the cecum and edema of the herniated mesenteric fat along with decreased enhancement of the draining mesenteric vein suggest secondary venous congestion due to compression of the draining vein. The feeding arteries along with the cecal mucosa remain enhancing argue against kathleen ischemia. 2. Mild dilation the short segment of the immediately more proximal ileum suggesting low-grade, intermittent or early obstruction. 3. Small left inguinal hernia containing short segment of sigmoid colon without evident obstruction or edematous changes. 4. Large right parapelvic cyst which results in chronic mild hydronephrosis at the upper pole calyces of the right kidney. Labs Labs: Laboratory Results - last 24 hr 12/01/24 05:49 WBC 8.6 RBC 4.16 L Hgb 12.4 L Hct 37.8 L MCV 90.9 MCH 29.8 MCHC 32.8 RDW 13.7 Plt Count 198 MPV 9.2 Sodium 127 L Potassium 3.9 Chloride 99 Carbon Dioxide 27 Anion Gap 1 L BUN 17 Creatinine 1.08 Estim Creat Clear Calc 59 Estimated GFR > 60 Glucose 92 Calcium 8.4 Magnesium 1.7
--- NOTE | 2024-12-01 12:58 | PM.DS ---
DS: Admitting Diagnosis Discharge Date 12/01/24 Admitting Diagnosis Painful inguinal hernia DS: Discharge Diagnosis Discharge Diagnosis (1) Inguinal hernia: Code(s): K40.90 - Unilateral inguinal hernia, without obstruction or gangrene, not specified as recurrent Status: Acute Plan 74-year-old male with chronic right-sided inguinal hernia who presents with non reducible hernia and pain . He usually can reduce it. Reports tobacco abuse but no other medical history. Lives at home with his . No nausea, vomiting, diarrhea, other abdominal pain. No fever. Presents to [place] ER on 11/28/2024 for the above symptoms. He reports he had a bowel movement in last had food without issue in the morning. WBC 10.6, hemoglobin 14.0, platelets 248, sodium 134, BUN 22, serum creatinine 1.16. CT abdomen pelvis with contrast performed: 1. Large right inguinal hernia containing the cecum, terminal ileum and normal appendix. Edematous wall thickening of the cecum and edema of the herniated mesenteric fat along with decreased enhancement of the draining mesenteric vein suggest secondary venous congestion due to compression of the draining vein. The feeding arteries along with the cecal mucosa remain enhancing argue against kathleen ischemia. 2. Mild dilation the short segment of the immediately more proximal ileum suggesting low-grade, intermittent or early obstruction. 3. Small left inguinal hernia containing short segment of sigmoid colon without evident obstruction or edematous changes. 4. Large right parapelvic cyst which results in chronic mild hydronephrosis at the upper pole calyces of the right kidney. General surgery consulted from the ER. Patient given morphine 2 mg IV x1, Zofran 4 mg IV x1. Afterwards, patient reports greatly reduced pain after morphine. He rest comfortably in the bed. ----- NPO. Normal saline at 100 cc/hour. Morphine p.r.n.. Patient declines nicotine patch/gum. Continue to monitor pain and abdominal/genitourinary exam. General surgery consulted. patient stats pain is much better compared to when he arrived, patient is seen by general surgery service and planning to take the patient to OR this afternoon. patient if present in the room and gave updates. will monitor, follow and further recommendation to follow. patient with incarcerated hernia s/p surgical repair, POD# 2, tolerating full liquid diet, passing gas, no BM yet, and will be seen by his surgeon, may advance to regular diet today . will have PT/OT work with the patient, will plan. patient is present. Patient would like to be full code. SCDs. DS: Summary Hospital Course Hospital Course: patient with incarcerated hernia s/p surgical repair, POD# 2, tolerating full liquid diet, passing gas, no BM yet, and was seen by his surgeon, patient clinical symptoms are improving, can be discharge home today. Time Spent with Patient Time attestation: Total time spent providing and/or coordinating discharge services: Exam Narrative: Patient is comfortable, NAD HEENT: eyes are clear and none icteric LUNGS:CTA HEART: RR S1S2 ABD: BS+, Soft and nontender Lower extremities: no edema SKIN: nonjaundiced Neuro: grossly intact. DS: Data Data Completed and Pending Pending studies at discharge: Pending at discharge 11/29/24 16:14 Surgical [PTH] Routine Labs on day of discharge: Labs from last 24 hours 12/01/24 05:49 WBC 8.6 RBC 4.16 L Hgb 12.4 L Hct 37.8 L MCV 90.9 MCH 29.8 MCHC 32.8 RDW 13.7 Plt Count 198 MPV 9.2 Sodium 127 L Potassium 3.9 Chloride 99 Carbon Dioxide 27 Anion Gap 1 L BUN 17 Creatinine 1.08 Estim Creat Clear Calc 59 Estimated GFR > 60 Glucose 92 Calcium 8.4 Magnesium 1.7 Discharge Plan Discharge Attending physician on discharge: Everardo Guzman Consulting providers: Martha Garcia; Seevn Crane; Jr Nance; Tunde Collado; Elaine Middleton; Moses Cornell Discharging Clinician: Everardo Guzman Patient Disposition: Home Activity: other - see discharge instructions Diet: regular Wound Care Instructions: other - see discharge instructions Discharge Instructions: DISCHARGE INSTRUCTION SHEET FOR HERNIA, GALLBLADDER AND APPENDIX SURGERIES DR. CRANE PATIENT TO TAKE HOME 1. May shower, no soaking in bath x 2weeks. 2. Call office for: Wound increasingly painful or bleeding Vomiting Fever of greater than 101 degrees 3. If no bowel movement for three days, take 1 oz. (30 ml) Milk of Magnesia or MiraLax 17g 1 to 2 times daily. 4. No heavy lifting > 10-15 pounds x 6 weeks for hernia repairs 5. No driving for 3 days or while taking narcotic pain medications. 6. Ice to surgical site for 48 hours (30 min on, then 30 min off). 7. Up walking 10-30 minutes three times per day. 8. Resume previous home medications. 9. Follow-up 10-14 days in office for wound check or as previously scheduled. [phone]) 10. Take Tylenol 500mg every 6 hours and Ibuprofen 600mg every 6 hours as needed. 11. NUTRITION: Start out by drinking fluids and increase your diet as tolerated. If you experience nausea, try dry toast, crackers, and 7-UP. If nausea or vomiting persists, contact your surgeon?s office. 12. Inguinal Hernias-wear scrotal support for 48 hours patient to follow discharge care instruction from his surgeon and follow up as scheduled, patient to follow up with his primary care provider as soon as possible. patient is instructed if any symptoms redevelop to go to nearest ER. Revised September 2018 Patient Instructions: Antibiotic Form Patient Language: Egyptian Stand Alone Forms: General Discharge Information Follow-up/Referrals: Seven Crane DO [Physician] - 2 Weeks Discharge Medications: New polyethylene glycol 3350 [Miralax] 17 gram Powder In Packet 17 g PO QAM Qty: 14 0RF Continued docusate sodium 100 mg capsule 100 mg PO PRN Date of admission: 11/28/24 18:13 Primary Care Provider: PHYSICIAN,PORT TRAFFIC MANAGER Admitting Provider: Everardo Guzman Attending physician on admission: Everardo Guzman Condition: Stable
== END 2024-12-01 13:45 | disposition home or self-care (01) | DRG 352 ==
LOC: ANHED 18:11 → ANH3MEDSUR 18:49
PROVIDERS: General Practice; Physician Assistant; Surgery; Admitting Provider Family Medicine; Emergency Provider Emergency Medicine; Visit Provider Family Medicine
PROC: 8E0Y4CZ Robotic Assisted Procedure of Lower Extremity, Percutaneous Endoscopic Approach (ICD-10-PCS; CPT 49650; principal; 2024-11-29 14:30)
DX: K40.30 Unilateral inguinal hernia, with obstruction, without gangrene, not specified as recurrent (principal); Z53.31 Laparoscopic surgical procedure converted to open procedure; F17.210 Nicotine dependence, cigarettes, uncomplicated
CPT/HCPCS: 36415; 74177; 80048; 80053; 81001; 83690; 83735; 85025; 85027; 85610; 88302; 93005; 96374; 96375; 96376; 99285; J0690; C1781; J1100; J1171; J1650; J2003; J2270; J2405; J2704; J3010; J7030; J7120; Q9967